=== PATIENT | male | born 1950 | race Caucasian/White ===

== ENCOUNTER → 2018-01-15 14:33 | Outpatient (CLI) | payer OTHER, SELFPAY | PROVIDERS: Family Provider Family Medicine; PCP Family Medicine; Visit Provider Internal Medicine Hematology & Oncology | DX: C83.31 Diffuse large B-cell lymphoma, lymph nodes of head, face, and neck (principal) ==

== ENCOUNTER 2018-03-07 08:55 | Day surgery (SDC) | payer OTHER, SELFPAY ==
[2018-02-21 14:05] VITALS: BMI 27.7
[2018-03-07] VITALS (9 sets, daily range): BP systolic 91–149; BP diastolic 47–81; PULSE 62–78; RESP 11–16; TEMP 36–37.2; O2SAT 96–99; BMI 27.7
[2018-03-07] MEDS: LACTATED RINGERS 1,000 ML 100 ML IV (09:26)
[2018-03-07] MEDS: CEFAZOLIN 2 GM/100 ML FROZ.PIGGY IV (10:20)
--- NOTE | 2018-03-07 10:21 | PM.HP.1 ---
History of Present Illness Date Patient Seen: 03/07/18 Time Patient Seen: 10:22 Chief complaint: [id number] PORT-A-CATH REMOVAL Narrative: Pleasant 67-year-old gentleman with stage IA or IIA lymphoma. He has completed chemotherapy and no longer needs his power port. He is here today to have it removed. He denies any constitutional symptoms. He reports he feels pretty well. He is anxious to be rid of the device. Patient History Medical History Femur fracture (Acute) Fractured elbow (Acute ~1979) Impaired vision (Acute) Malaise and fatigue (Acute) Port-A-Cath in place (Acute) Surgical History History of bone marrow biopsy (Acute) Family & Social History Family History: Reviewed 03/07/18 by Juana Mock MD Social History: household members spouse Tobacco & Substance use: Tobacco type cigarettes alcohol intake current Meds Home Medications Medication Instructions Recorded Confirmed Type [compression stocking] SEE INSTRUCTIONS #1 05/30/17 Rx omeprazole 20 mg PO QDAY #30 cap 06/09/17 03/07/18 Rx acetaminophen [Tylenol Extra 1,000 mg PO Q6HP PRN #0 10/25/17 03/07/18 History Strength] calcium carbonate [Tums E-X] 750 mg PO BID #120 tab 11/01/17 03/07/18 Rx trazodone 100 mg tablet 100 mg PO HS #30 tab 11/30/17 03/07/18 Rx atorvastatin [Lipitor] 20 mg PO HS #30 tab 01/29/18 03/07/18 Rx Allergies Allergy/AdvReac Type Severity Reaction Status Date / Time bacitracin Allergy Unknown Verified 03/07/18 09:07 [From TRIPLE ANTIBIOTIC] Iodine and Iodide Containing Allergy Unknown Verified 03/07/18 09:07 Produc [IODINE AND IODIDE CONTAINING PRODUC] neomycin Allergy Unknown Verified 03/07/18 09:07 [From TRIPLE ANTIBIOTIC] polymyxin B Allergy Unknown Verified 03/07/18 09:07 [From TRIPLE ANTIBIOTIC] Review of Systems Review of Systems All systems reviewed & are unremarkable except as noted in HPI and below Exam Vital Signs (past 8 hours): - 03/07/18 09:15 Temperature 96.8 F L Pulse Rate 78 Respiratory Rate 16 Blood Pressure 149/76 H Oxygen Delivery Method Room Air Narrative Exam Narrative: Very pleasant, well-nourished well-developed gentleman in no distress HEENT: Normocephalic and atraumatic, pupils equal round reactive to light accommodation with anicteric sclera Lungs: Clear to auscultation bilaterally Heart: Regular rate and rhythm without murmur rub or gallop Chest: Power port in good position in the right subclavian location. No erythema overlying the port. Abdomen: Soft and nontender with active bowel sounds Extremities: Warm and well-perfused without gross evidence of infection or ischemia Assessment & Plan Plan: Assessment/Plan Narrative: Pleasant gentleman having completed chemotherapy and no longer in need of his power port. We discussed the risks and benefits of power port removal and he has expressed a desire to complete the procedure today.
--- NOTE | 2018-03-07 10:40 | SUR.OPER ---
Supine on padded OR bed, head on pillow, arms secured on padded arm boards at <90 degrees abduction, legs uncrossed, safety belt at thigh, tape over blanket over lower legs.
--- NOTE | 2018-03-07 10:48 | P.OP_ITS ---
Operative Date/Time/Diagnoses Date of procedure: 03/07/18 Time of procedure: 10:47 Post-op diagnosis: same Procedure & Clinicians Procedure: Right subclavian PowerPort removal Same procedure as scheduled: Yes Indications: Chemotherapy for lymphoma completed Surgeon: Juana Mock Anesthesia Type: General (Kuldip) Operative Notes Findings: Port removed in a single piece. Appears to be in good repair Closure Type: primary Specimen(s): none sent Estimated Blood Loss (mL): 5 Procedure in detail: After obtaining informed consent, the patient was brought to the operating room and placed in the supine position on the operating table. Following successful induction of IV sedation with monitored anesthesia care, the chest was prepped and draped in the standard surgical fashion. A timeout was held per SCOAP protocol. Following infiltration with local anesthetic to create a field block, the existing healed incision was repeated. This was carried down through the skin and subcutaneous tissue to reveal the tubing of the implanted central venous device. The tubing was carefully dissected free from surrounding structures and delivered into the field. Pressure was held at the deltopectoral groove to prevent air embolus and backbleeding. After 5 minutes time, we continued with dissection of the remaining portion of the port. The reservoir itself remained in the pocket and has been incorporated into the tissue. This was carefully dissected free with judicious use of a scalpel. It was delivered into the field as a single piece with tubing attached. The incision was checked for hemostasis and irrigated with warm saline solution. Once we were satisfied that all was clean and dry, it was closed in 2 layers with Vicryl Monocryl sutures. Dermabond was applied to the skin incision. All sponge, needle, and instrument counts were correct at the conclusion of the case. The patient was allowed to awaken from sedation without difficulty and taken to the post anesthesia care unit in good condition. Complications: none Condition: stable Disposition: PACU Plan for aftercare: 1. Discharge to home 2. Follow up with primary care physician and [facility] as needed.
[2018-03-07] MEDS: LIDOCAINE 1% W/EPI INJ 10 ML INJ (10:56)
[2018-03-07] MEDS: BUPIVACAINE 0.5% (PF) VIAL 30 ML INJ (10:57)
== END 2018-03-07 11:45 | disposition home or self-care (01) ==
PROVIDERS: Family Provider Family Medicine; PCP Family Medicine; Visit Provider Surgery
PROC: (CPT 36590; principal; 2018-03-07 09:45)
DX: Z45.2 Encounter for adjustment and management of vascular access device (principal); Z85.72 Personal history of non-Hodgkin lymphomas
CPT/HCPCS: 36590; J0690; J2250; J2405; J2704; J3010

== ENCOUNTER 2018-03-10 17:40 | Emergency (ER) | payer OTHER, SELFPAY ==
[2018-03-10 17:51] VITALS: BP 139/76; PULSE 76; RESP 20; TEMP 36.6; O2SAT 97; BMI 27.2
--- NOTE | 2018-03-10 18:01 | PC.NURSE ---
States that he was exposed to a large amt of dust while assisting with project. States gets sinus infections when this happens. States recent cancer treatment and port has been removed.
--- NOTE | 2018-03-10 18:30 | ED_ITS ---
HPI - URI/Sore Throat <Richelle Singh PA-C - Last Filed: 03/10/18 21:56> General Chief Complaint: Upper Respiratory Symptoms Stated Complaint: CONGESTION/COUGHING UP FLEM Time Seen by Provider: 03/10/18 18:14 Source: patient Mode of arrival: ambulatory Limitations: no limitations History of Present Illness HPI Narrative: This 67-year-old gentleman comes in today due to upper respiratory symptoms that started 4 nights ago after he inhaled dust the night before. He states this is typically the trigger for him. He came into the hospital to have his port removed on Monday and was noticing some sinus drainage and congestion. By , he had congestive congestion and bringing up discolored sputum. He states that over the counter decongestant is helping. He has mild sore throat, denies earache, sinus pain, fever, chills, or sweats. He does not have neck pain or swollen glands. He denies dyspnea, wheeze, or chest pain. He states that typically, this settles in his chest as it has now, has had many times and treated with 5 day antibiotic and resolves well. Related Data Home Medications Medication Instructions Recorded Confirmed acetaminophen [Tylenol Extra 1,000 mg PO Q6HP PRN #0 10/25/17 03/07/18 Strength] Previous Rx's Medication Instructions Recorded [compression stocking] SEE INSTRUCTIONS #1 05/30/17 omeprazole 20 mg PO QDAY #30 cap 06/09/17 calcium carbonate [Tums E-X] 750 mg PO BID #120 tab 11/01/17 trazodone 100 mg tablet 100 mg PO HS #30 tab 11/30/17 atorvastatin [Lipitor] 20 mg PO HS #30 tab 01/29/18 oxycodone-acetaminophen [Percocet] 1 tab PO Q4-6H PRN #10 tab MDD 4 03/07/18 azithromycin [Zithromax Z-Aftab] See Label Instructions .ROUTE 03/10/18 .COMPLEX #6 tab Allergies Allergy/AdvReac Type Severity Reaction Status Date / Time bacitracin Allergy Unknown Verified 03/07/18 09:07 [From TRIPLE ANTIBIOTIC] Iodine and Iodide Containing Allergy Unknown Verified 03/07/18 09:07 Produc [IODINE AND IODIDE CONTAINING PRODUC] neomycin Allergy Unknown Verified 03/07/18 09:07 [From TRIPLE ANTIBIOTIC] polymyxin B Allergy Unknown Verified 03/07/18 09:07 [From TRIPLE ANTIBIOTIC] Review of Systems <Richelle Singh PA-C - Last Filed: 03/10/18 21:56> Review of Systems All systems reviewed & are unremarkable except as noted in HPI and below Exam <Richelle Singh PA-C - Last Filed: 03/10/18 21:56> Narrative Exam Narrative: GENERAL APPEARANCE: Patient sitting comfortably, in no distress. HEAD: No sinus TTP. EYES: PERRL, EOMI. EARS: Normal auditory canals, TMS intact with normal light reflexes. ORAL CAVITY: Normal oropharynx. THROAT: No exudate, some PND noted NECK/THYROID: Neck supple, full range of motion, no cervical lymphadenopathy. LUNGS: Breath sounds are somewhat coarse with no wheeze, no rhonchi, some coarse crackles that mostly clear with cough, generalized, no cough on exam HEART: RRR without murmur, nl S1, S2, no S3 or S4. Initial Vital Signs Initial Vital Signs: Vital Signs Temperature 97.8 F 03/10/18 17:51 Pulse Rate 76 03/10/18 17:51 Respiratory Rate 20 03/10/18 17:51 Blood Pressure 139/76 H 03/10/18 17:51 Pulse Oximetry 97 03/10/18 17:51 GENERAL APPEARANCE: Patient sitting comfortably, in no distress. HEAD: No sinus TTP. EYES: PERRL, EOMI. EARS: Normal auditory canals, TMS intact with normal light reflexes. ORAL CAVITY: Normal oropharynx. THROAT: No exudate, some PND noted NECK/THYROID: Neck supple, full range of motion, no cervical lymphadenopathy. LUNGS: Breath sounds are somewhat coarse with no wheeze, no rhonchi, some coarse crackles that mostly clear with cough, generalized, no cough on exam HEART: RRR without murmur, nl S1, S2, no S3 or S4. Const General: cooperative and well developed Nutritional Appearance: well nourished Orientation: alert, awake, oriented x3 and not confused [facility] Head: normocephalic and atraumatic Ears: external ears normal and TM's normal bilaterally Nose: external nose normal and No nasal discharge Face and sinus: sinuses nontender, face symmetric, no sinus tenderness and No dry mucous membranes Mouth: oral mucosae normal and moist mucous membranes Teeth and gingiva: dentition normal Throat: tonsils normal and uvula midline Eyes General: appearance normal, both eyes and all related structures Eyelids: eyelids normal Conjunctivae: conjunctivae normal Sclera: sclerae normal Pupils: PERRL EOM: EOM intact bilaterally Neck Neck: normal visual inspection, trachea midline, No lymphadenopathy, No midline deformity and No JVD Lymphatic: No lymphedema Chest Chest: normal inspection of the chest Resp Effort & Inspection: normal respiratory effort, able to speak in complete sentences, no respiratory distress and no use of accessory muscles Auscultation: clear to auscultation bilaterally, no rales, no rhonchi and no wheezes Cardio Rate: regular rate Rhythm: regular rhythm Heart Sounds: no click, no gallops, no murmurs and no rubs Pulses: normal peripheral pulses GI Inspection: non-distended Palpation: soft, no hepatosplenomegaly, No guarding, No pulsatile mass and No tender Auscultation: normal bowel sounds Back/Spine/Pelvis Back: No CVA tenderness Cervical Spine: cervical ROM normal and No pain with cervical ROM Thoracic/Lumbar Spine: thoracic and lumbar spine normal to inspection Skin General: no rashes or lesions noted, No jaundice and No petechiae Neuro General: alert, oriented x3, gait normal and no focal motor deficits Speech: speech normal Extrem General: full ROM, no clubbing, cyanosis or edema, no pedal edema and no calf tenderness Psych Appearance: well kempt Mental Status: mental status grossly normal Attitude: cooperative Thought Content: normal and suicidality Judgment: judgment good <Mark Anthony Nelson DO - Last Filed: 03/10/18 22:09> Initial Vital Signs Initial Vital Signs: Vital Signs Temperature 97.8 F 03/10/18 17:51 Pulse Rate 76 03/10/18 17:51 Respiratory Rate 20 03/10/18 17:51 Blood Pressure 139/76 H 03/10/18 17:51 Pulse Oximetry 97 03/10/18 17:51 Course <Richelle Singh PA-C - Last Filed: 03/10/18 21:56> Orders Ordered: Discontinued Medications Azithromycin (Zithromax) 500 mg PO NOW ONE Stop: 03/10/18 19:23 Last Admin: 03/10/18 19:25 Dose: 500 mg Vital Signs - 8 hr 03/10/18 17:51 Temperature 97.8 F Pulse Rate 76 Respiratory Rate 20 Blood Pressure 139/76 H Pulse Oximetry 97 <Mark Anthony NelsonDO - Last Filed: 03/10/18 22:09> Orders Ordered: Discontinued Medications Azithromycin (Zithromax) 500 mg PO NOW ONE Stop: 03/10/18 19:23 Last Admin: 03/10/18 19:25 Dose: 500 mg Vital Signs - 8 hr 03/10/18 17:51 Temperature 97.8 F Pulse Rate 76 Respiratory Rate 20 Blood Pressure 139/76 H Pulse Oximetry 97 Discharge Plan Departure Patient Disposition: Home Clinical Impression: Bronchitis Discharge Date/Time: 03/10/18 18:46 Interventions: ED Discharge Assessment Last Done: 03/10/18 18:46 Instructions: DI for Acute Bronchitis Activity Restrictions/Additional Instructions: You should return as we talked about if you have any acutely worsening symptoms , or new symptoms such as trouble breathing, chest pain or fever. Otherwise, you can take the antibiotic that you have had previously since it has worked well for you in the past. There is a chance also that this is a virus and may get better on its own, but you should follow up with your PCP if you are not feeling better within a week. You can continue your [id number] cough medicine/decongestant that you have been taking as needed Prescriptions: New azithromycin [Zithromax Z-Aftab] 250 mg tablet See Label Instructions .ROUTE .COMPLEX Qty: 6 RF: 0 No Action [compression stocking] SEE INSTRUCTIONS Qty: 1 RF: 0 omeprazole 20 MG capsule,delayed release(DR/EC) 20 mg PO QDAY Qty: 30 RF: 5 acetaminophen [Tylenol Extra Strength] 500 MG tablet 1,000 mg PO Q6HP PRN (Reason: Pain) Qty: 0 RF: 0 calcium carbonate [Tums E-X] 750 MG tablet,chewable 750 mg PO BID Qty: 120 RF: 0 trazodone 100 mg tablet 100 mg PO HS Qty: 30 RF: 5 atorvastatin [Lipitor] 20 mg tablet 20 mg PO HS Qty: 30 RF: 5 oxycodone-acetaminophen [Percocet] 5-325 mg tablet 1 tab PO Q4-6H MDD 4 PRN (Reason: pain) Qty: 10 RF: 0 Referrals: Oscar Morrissey MD [Primary Care Provider] - <Mark Anthony Nelson DO - Last Filed: 03/10/18 22:09> Cosign ED Attending Duncanature Attestation: I was available for consultation during this patient's emergency department encounter
[2018-03-10] MEDS: AZITHROMYCIN 250 MG TABLET 500 MG PO (19:25)
--- NOTE | 2018-03-10 19:27 | PC.NURSE ---
Pt returned to ED after not being able to fill prescription due to [facility] pharmacy being closed. Pam Singh notified, pt given first dose azithromycin 500mg to take at home.
== END 2018-03-10 18:46 | disposition home or self-care (01) ==
PROVIDERS: Emergency Provider Internal Medicine; Family Provider Family Medicine; PCP Family Medicine
DX: J40 Bronchitis, not specified as acute or chronic (principal)
CPT/HCPCS: 99282; 99283

== ENCOUNTER → 2018-03-27 17:07 | Outpatient (CLI) | payer OTHER, SELFPAY ==
[2018-03-27 17:22] LABS: Add Manual Diff / Slide Review NO; Basophils Percent Auto 0.8 % (0-2); Eosinophils Percent Auto 1.8 % (2-4); Hematocrit 40.7 % (41-53); Hemoglobin 13.8 g/dL (13.5-17.5); Lymphocytes Percent Auto 16.2 % (25-40); Mean Corpuscular HGB Conc 33.9 % (30-36); Mean Corpuscular Hemoglobin 30.5 PG (26-34); Monocytes Percent Auto 11.6 % (3-14); Neutrophils Absolute Auto 4100 /uL (3000-5900); Neutrophils Percent Auto 69.6 % (50-75); Platelet Count 189 X10^3/uL (150-400); Red Blood Cell Count 4.52 X10^6/uL (4.5-5.9); Red Cell Distribution Width 13.4 % (11.6-14.8); White Blood Cell Count 5.9 X10^3/uL (4.5-11.0)
[2018-03-27 17:35] LABS: BUN Creatinine Ratio 21.1 (6-22); Blood Urea Nitrogen 19 mg/dL (9-20); Calcium 8.6 mg/dL (8.4-10.2); Carbon Dioxide 32 mmol/L (22-32); Chloride 101 mmol/L (98-107); Estimated Glomerular Filt Rate > 60.0 mL/min (>60); Glucose 95 mg/dL (80-110); HEMOLYSIS < 15 (0-50); Potassium 4.2 mmol/L (3.4-5.1); Sodium 141 mmol/L (137-145)
== END ==
PROVIDERS: Family Provider Family Medicine; PCP Family Medicine; Visit Provider Family Medicine
DX: D70.9 Neutropenia, unspecified (principal); Z79.899 Other long term (current) drug therapy
CPT/HCPCS: 36415; 80048; 85025

== ENCOUNTER → 2018-04-17 14:51 | Outpatient (CLI) | payer OTHER, SELFPAY ==
[2018-04-17 15:20] LABS: Add Manual Diff / Slide Review NO; Basophils Percent Auto 1.1 % (0-2); Eosinophils Percent Auto 0.8 % (2-4); Hematocrit 42.9 % (41-53); Hemoglobin 14.3 g/dL (13.5-17.5); Lymphocytes Percent Auto 10.2 % (25-40); Mean Corpuscular HGB Conc 33.4 % (30-36); Mean Corpuscular Volume 89.9 fL (80-100); Monocytes Percent Auto 11.1 % (3-14); Neutrophils Absolute Auto 5800 /uL (3000-5900); Neutrophils Percent Auto 76.8 % (50-75); Platelet Count 185 X10^3/uL (150-400); Red Blood Cell Count 4.77 X10^6/uL (4.5-5.9); Red Cell Distribution Width 14.1 % (11.6-14.8); White Blood Cell Count 7.5 X10^3/uL (4.5-11.0)
[2018-04-17 15:24] LABS: Alanine Aminotransferase 33 IU/L (21-72); Albumin 4.5 g/dL (3.5-5.0); Albumin Globulin Ratio 1.7 (1.0-2.8); Alkaline Phosphatase 78 U/L (38-126); Aspartate Aminotransferase 28 IU/L (17-59); Bilirubin Total 0.5 mg/dL (0.2-1.3); Blood Urea Nitrogen 20 mg/dL (9-20); Calcium 8.7 mg/dL (8.4-10.2); Carbon Dioxide 29 mmol/L (22-32); Chloride 101 mmol/L (98-107); Estimated Glomerular Filt Rate > 60.0 mL/min (>60); Globulin 2.7 g/dL (1.7-4.1); Glucose 106 mg/dL (80-110); HEMOLYSIS 21 (0-50); Lactate Dehydrogenase 492 U/L (313-618); Potassium 3.8 mmol/L (3.4-5.1); Sodium 141 mmol/L (137-145); Total Protein 7.2 g/dL (6.3-8.2)
== END ==
PROVIDERS: Internal Medicine Hematology & Oncology; Family Provider Family Medicine; PCP Family Medicine; Visit Provider Nurse Practitioner Gerontology
DX: C85.90 Non-Hodgkin lymphoma, unspecified, unspecified site (principal)
CPT/HCPCS: 36415; 80053; 83615; 85025

== ENCOUNTER → 2018-11-21 13:38 | Outpatient (CLI) | payer OTHER, SELFPAY ==
[2018-11-21 14:18] LABS: Add Manual Diff / Slide Review NO; Basophils Absolute Auto 0 /uL (0-100); Basophils Percent Auto 0.7 % (0-2); Eosinophils Absolute Auto 100 /uL (0-450); Eosinophils Percent Auto 1.5 % (2-4); Hematocrit 43.8 % (41-53); Hemoglobin 14.8 g/dL (13.5-17.5); Lymphocytes Absolute Auto 900 /uL (1100-4500); Lymphocytes Percent Auto 14.3 % (25-40); Mean Corpuscular HGB Conc 33.7 % (30-36); Mean Corpuscular Hemoglobin 30.7 PG (26-34); Monocytes Absolute Auto 600 /uL (0-900); Monocytes Percent Auto 8.9 % (3-14); Neutrophils Absolute Auto 4700 /uL (1500-7000); Neutrophils Percent Auto 74.6 % (50-75); Platelet Count 222 X10^3/uL (150-400); Red Blood Cell Count 4.81 X10^6/uL (4.5-5.9); Red Cell Distribution Width 13.9 % (11.6-14.8); White Blood Cell Count 6.3 X10^3/uL (4.5-11.0)
[2018-11-21 14:27] LABS: Alanine Aminotransferase 45 IU/L (21-72); Albumin 4.7 g/dL (3.5-5.0); Albumin Globulin Ratio 1.8 (1.0-2.8); Alkaline Phosphatase 78 U/L (38-126); Aspartate Aminotransferase 33 IU/L (17-59); Bilirubin Total 0.5 mg/dL (0.2-1.3); Blood Urea Nitrogen 16 mg/dL (9-20); Calcium 9.2 mg/dL (8.4-10.2); Carbon Dioxide 30 mmol/L (22-32); Chloride 97 mmol/L (98-107); Cholesterol 159 mg/dL (140-199); Estimated Glomerular Filt Rate > 60.0 mL/min (>60); Globulin 2.6 g/dL (1.7-4.1); Glucose 117 mg/dL (80-110); HDL Cholesterol 62 mg/dL (40-60); HEMOLYSIS < 15 (0-50); LDL Cholesterol Calculated 79 mg/dL (<100); Lactate Dehydrogenase 531 U/L (313-618); Potassium 4.2 mmol/L (3.4-5.1); Sodium 138 mmol/L (137-145); Total Protein 7.3 g/dL (6.3-8.2); Triglycerides 92 mg/dL (35-150)
[2018-11-21 17:45] LABS: Vitamin D 25 Hydroxy (D3) 30.1 ng/mL (30.0-100.0)
[2018-11-23 12:04] LABS: Beta-2-Microglobulin 1.72 mg/L (< 2.52)
== END ==
PROVIDERS: Family Provider Student in an Organized Health Care Education/Training Program; PCP Student in an Organized Health Care Education/Training Program; Visit Provider Nurse Practitioner Gerontology
DX: C83.30 Diffuse large B-cell lymphoma, unspecified site (principal)
CPT/HCPCS: 36415; 80053; 80061; 82232; 82306; 83615; 85025

== ENCOUNTER → 2018-12-06 09:54 | Outpatient (CLI) | payer OTHER, SELFPAY ==
[2018-12-06 10:29] LABS: BUN Creatinine Ratio 18.9 (6-22); Blood Urea Nitrogen 17 mg/dL (9-20); Estimated Glomerular Filt Rate > 60.0 mL/min (>60)
[2018-12-06 11:06] LABS: Cholesterol 167 mg/dL (140-199); HDL Cholesterol 61 mg/dL (40-60); LDL Cholesterol Calculated 90 mg/dL (<100); Triglycerides 78 mg/dL (35-150)
[2018-12-06 11:24] LABS: Vitamin D 25 Hydroxy (D3) 24.3 ng/mL (30.0-100.0)
--- NOTE | 2018-12-06 12:04 | DI.CT.S_ITS ---
PROCEDURE: CT SOFT TISSUE NECK W CON INDICATIONS: Surveillance Lymphoma TECHNIQUE: After the administration of intravenous contrast, 3.0 mm axial sections acquired from the sella to the aortic arch. Additional oblique axial 3.0 mm sections acquired through the pharynx. 3 mm thick coronal and sagittal reformats were generated. For radiation dose reduction, the following was used: automated exposure control. COMPARISON: [facility], CT, SOFT TISSUE NECK W CONTRAST, 11/16/2017, 12:25. FINDINGS: Image quality: Excellent. Lymph nodes: Previously described 4.3 x 2.4 x 1.6 cm right supraclavicular kyle mass is no longer present on the current study. No enlarged lymph nodes are seen in bilateral neck soft tissues on the current study. Vessels: Visualized vasculature appears patent. Neck spaces: The oropharynx, nasopharynx, and pharynx demonstrate no mucosal lesions. The vocal cords, false vocal cords, pyriform sinuses, epiglottis, vallecula, and tongue base all appear normal. Extramucosal spaces appear unremarkable. Glands: The parotid and submandibular glands appear normal. Thyroid gland is within normal limits. Miscellaneous: Visualized brain and orbits appear normal. Lung apices appear clear. Superficial soft tissues appear normal. Bones: No suspicious bony lesions. Visualized sinuses and mastoids appear unremarkable. Degenerative disc disease throughout cervical spine and upper thoracic spine is seen. IMPRESSION: 1. Interval resolution of previously noted right supraclavicular local mass. No neck soft tissue lymphadenopathy is noted on the current study based on size criteria. 2. Airway is patent. Dictated by: Cisco Guerra M.D. on 12/06/2018 at 14:12 Approved by: Cisco Guerra M.D. on 12/06/2018 at 14:21
--- NOTE | 2018-12-06 12:04 | DI.CT.S_ITS ---
PROCEDURE: CT CHEST ABD PEL W CON INDICATIONS: Surveillance Lymphoma TECHNIQUE: After the administration of oral and intravenous contrast, 5 mm thick sections acquired from the lung apices to the symphysis. 5 mm coronal and sagittal reformats were performed, with additional 7 mm coronal MIP reformats through the lungs. For radiation dose reduction, the following was used: automated exposure control, adjustment of mA and/or kV according to patient size. COMPARISON: [facility], [place], LA PET CT FUSION SKULL 2 THIGH, 05/30/2018, 14:50. [facility], CT, CHEST/ABD/PEL WITH CONTRAST, 11/16/2017, 12:25. FINDINGS: Image quality: Excellent. CHEST: Lungs and pleura: No acute airspace opacities. Linear scarring/atelectasis in the anterior medial aspect of right lung base is seen. No pleural effusions or pneumothorax. Central and peripheral airways appear patent and normal in caliber. Mediastinum: Heart size is normal. No pericardial effusion. No mediastinal or hilar adenopathy by size criteria. Thoracic aorta and central pulmonary arteries are normal in size. Esophagus is normal in caliber. No hiatal hernia. Chest wall: No axillary or supraclavicular adenopathy by size criteria. Thyroid gland is within normal limits. ABDOMEN: Solid organs: Liver is normal in size and enhancement. There is mild hepatic steatosis. Gallbladder is unremarkable. Biliary system is non dilated. Pancreas enhances normally. Spleen is normal in size and enhancement. No adrenal nodules. Kidneys demonstrate normal size and enhancement, without hydronephrosis. 3 mm nonobstructing stone in midpole of right kidney is again seen, unchanged from prior studies. Tiny 2-3 mm nonobstructing stone in upper pole of left kidney is also noted and unchanged mild sigmoid diverticulosis is seen, no evidence of acute diverticulitis. Small hiatal hernia is noted. Peritoneum and bowel: Bowel loops demonstrate normal wall thickness and caliber. No free fluid or air. Nodes and vessels: No retroperitoneal or mesenteric adenopathy by size criteria. Aorta and inferior vena cava are normal in size. Atherosclerotic calcifications in abdominal aorta are seen. Miscellaneous: No ventral hernias. PELVIS: Genitourinary: Bladder wall thickness is normal. Miscellaneous: No inguinal hernias or adenopathy. Bones: No suspicious bony lesions. No vertebral body compression fractures. Large subcutaneous lipoma dorsal to right scapula is again seen and unchanged. IMPRESSION: 1. No significant changes from previous study. No abnormally enlarged lymph nodes are seen in chest, abdomen or pelvis by size criteria. 2. No acute inflammatory process within the abdomen or pelvis. No bowel obstruction. No free fluid or free air. 3. Tiny bilateral nonobstructing renal calculi. No hydronephrosis. 4. Stable large subcutaneous lipoma posterior to right scapula. Dictated by: Cisco Guerra M.D. on 12/06/2018 at 13:57 Approved by: Cisco Guerra M.D. on 12/06/2018 at 14:12
== END ==
PROVIDERS: Family Provider Student in an Organized Health Care Education/Training Program; PCP Student in an Organized Health Care Education/Training Program; Visit Provider Internal Medicine Hematology & Oncology
DX: C83.30 Diffuse large B-cell lymphoma, unspecified site (principal); D17.79 Benign lipomatous neoplasm of other sites; E78.00 Pure hypercholesterolemia, unspecified; E55.9 Vitamin D deficiency, unspecified
CPT/HCPCS: 36415; 70491; 71260; 74177; 80061; 82306; 82565; 84520; Q9967

== ENCOUNTER 2019-02-04 06:57 | Emergency (ER) | payer OTHER, SELFPAY ==
--- NOTE | 2019-02-04 07:05 | ED.ABDPAIN ---
HPI - Abdominal Pain General Chief Complaint: Urogenital-Male Stated Complaint: ABDOMINAL PAIN Time Seen by Provider: 02/04/19 07:04 Source: patient Mode of arrival: ambulatory Limitations: no limitations History of Present Illness HPI narrative: 68-year-old male here for evaluation of left-sided abdominal pain. Patient states that it started approximately 2 hours prior to arrival here in the emergency department. Fairly sudden onset. He has had a history of kidney stones in the past but he stated that that was many years ago and he does not remember this feels like prior kidney stone. He states that he tried to urinate when he arrived in the emergency department was unable to. Pain is not worse with palpation. No vomiting. Has not tried anything for the symptoms prior to arrival Related Data Home Medications Medication Instructions Recorded Confirmed acetaminophen [Tylenol Extra 1,000 mg PO Q6HP PRN #0 10/25/17 11/01/18 Strength] Previous Rx's Medication Instructions Recorded [compression stocking] SEE INSTRUCTIONS #1 05/30/17 calcium carbonate [Tums E-X] 750 mg PO BID #120 tab 11/01/17 atorvastatin 20 mg tablet 20 mg PO HS #90 tab 11/01/18 trazodone 100 mg tablet 100 mg PO HS #90 tab 11/01/18 omeprazole 20 mg tablet,delayed 20 mg PO DAILY #90 tab 12/05/18 release hydrocodone-acetaminophen [[place]] 1 tab PO Q4-6H PRN #14 tab 02/04/19 ondansetron HCl [Zofran] 4 mg PO Q6-8H PRN #14 tab 02/04/19 Allergies Allergy/AdvReac Type Severity Reaction Status Date / Time bacitracin Allergy Unknown Verified 11/01/18 13:39 [From TRIPLE ANTIBIOTIC] Iodine and Iodide Containing Allergy Unknown Verified 11/01/18 13:39 Produc [IODINE AND IODIDE CONTAINING PRODUC] neomycin Allergy Unknown Verified 11/01/18 13:39 [From TRIPLE ANTIBIOTIC] polymyxin B Allergy Unknown Verified 11/01/18 13:39 [From TRIPLE ANTIBIOTIC] Review of Systems Constitutional Denies fever(s) and Denies headache(s) ENT Ears, Nose, Mouth, and Throat: Denies headache(s) Cardiovascular Denies chest pain and Denies dyspnea Respiratory Denies dyspnea Gastrointestinal Gastrointestinal: Reports abdominal pain, Denies change in stool character, Denies nausea and Denies vomiting Genitourinary Comments: Unable to urinate upon arrival here to the ER Musculoskeletal Comments: Left flank pain Integumentary/Breasts Denies rash Neurologic Denies headache(s) Hematologic/Lymphatic Denies easy bleeding and Denies easy bruising FORMERLY [facility], 1928–1983 Medical History NHL (non-Hodgkin's lymphoma) (Chronic) Gastroesophageal reflux disease without esophagitis (Chronic 05/31/16) Pure hypercholesterolemia (Chronic 05/31/16) Primary insomnia (06/23/16) Chronic venous insufficiency (05/29/17) Femur fracture (Acute) Fractured elbow (Acute ~1979) Impaired vision (Acute) Malaise and fatigue (Acute) Port-A-Cath in place (Acute) ADHD (attention deficit hyperactivity disorder) (Chronic 2009) Allergic rhinitis (Chronic) GERD (gastroesophageal reflux disease) (Chronic) Hearing loss (Chronic) Hyperlipemia (Chronic) Hypertension (Chronic) Insomnia (Chronic) Lymphoma (Chronic) Rosacea (Chronic 2003) Sleep apnea (Chronic 2001) Chickenpox (Resolved 1955) Fractures (Resolved) Hemorrhoids (Resolved 1994) Hx of staphylococcal infection (Resolved 2010) Kidney stones (Resolved 1997) Measles (Resolved 1957) Mumps (Resolved 1956) Surgical History (Updated 12/18/18 @ 14:10 by James Vargas MD) Hx of bone graft (Resolved 2009) History of bone marrow biopsy (Resolved) Hx of surgical procedure (Resolved) Family History Father Cancer Mother No problems noted. Grandfather Cancer Sister Cancer Social History marital status: household members: spouse Smoking Status: Former smoker alcohol intake: current Social History marital status: household members: spouse Smoking Status: Former smoker alcohol intake: current Exam Initial Vital Signs Initial Vital Signs: Vital Signs Temperature 97.5 F L 02/04/19 07:06 Pulse Rate 65 02/04/19 07:06 Respiratory Rate 18 02/04/19 07:06 Blood Pressure 190/68 H 02/04/19 07:06 Pulse Oximetry 97 02/04/19 07:06 Const General: cooperative, No comfortable (Uncomfortable), well developed and well groomed Orientation: alert, awake and oriented x3 Resp Effort & Inspection: normal respiratory effort Auscultation: clear to auscultation bilaterally Cardio Rate: regular rate Rhythm: regular rhythm GI Inspection: non-distended Palpation: soft, No firm and No tender Back/Spine/Pelvis Back: No CVA tenderness Skin Lesions: no lesions Rashes: no rashes Neuro General: alert and awake Cognition: normal cognition Speech: speech normal Extrem General: normal to inspection and capillary refill normal Psych Appearance: grossly normal and well kempt Course Orders Ordered: ED Orders 02/04/19 09:46 CT kidney ureter bladder (KUB) Stat Discontinued Medications Acetaminophen (Tylenol) 650 mg PO NOW ONE Stop: 02/04/19 07:07 Last Admin: 02/04/19 07:33 Dose: 650 mg Hydrocodone Bitart/Acetaminophen ([place] 5/325) 1 tab PO NOW ONE Stop: 02/04/19 10:35 Last Admin: 02/04/19 11:26 Dose: Not Given Hydromorphone HCl (Dilaudid) 1 mg IV NOW ONE Stop: 02/04/19 07:25 Last Admin: 02/04/19 07:32 Dose: 1 mg Hydromorphone HCl (Dilaudid) 1 mg IV NOW ONE Stop: 02/04/19 11:25 Last Admin: 02/04/19 11:27 Dose: 1 mg Lidocaine HCl 7 ml/ Sodium (Chloride) 57 mls @ 342 mls/hr IV NOW ONE Stop: 02/04/19 07:11 Last Infusion: 02/04/19 08:56 Dose: 0 mls/hr Admin: 02/04/19 07:54 Dose: 342 mls/hr Sodium Chloride (Normal Saline 0.9%) 1,000 mls @ 1,000 mls/hr IV BOLUS ONE Stop: 02/04/19 08:22 Last Infusion: 02/04/19 08:56 Dose: 0 mls/hr Admin: 02/04/19 07:33 Dose: 1,000 mls/hr Ketorolac Tromethamine (Toradol) 30 mg IV NOW ONE Stop: 02/04/19 07:07 Last Admin: 02/04/19 07:33 Dose: 30 mg Ondansetron HCl (Zofran Odt) 4 mg SL NOW ONE Stop: 02/04/19 11:12 Last Admin: 02/04/19 11:26 Dose: Not Given Ondansetron HCl (Zofran) 4 mg IV NOW ONE Stop: 02/04/19 11:25 Last Admin: 02/04/19 11:26 Dose: 4 mg Vital Signs - 8 hr 02/04/19 09:15 02/04/19 10:00 02/04/19 11:15 Pulse Rate 57 L 60 107 H Respiratory Rate 11 L 12 22 Blood Pressure [Right Arm] 169/62 H 156/80 H 160/67 H Pulse Oximetry 98 02/04/19 11:30 Pulse Rate 68 Respiratory Rate 16 Blood Pressure [Right Arm] 142/63 H Pulse Oximetry MDM - Abdominal Pain Lab Data Attestation: I reviewed the patient's lab results. Result diagrams: 02/04/19 07:20 02/04/19 07:20 Lab Results 02/04/19 02/04/19 Range/Units 07:20 07:20 WBC 11.5 H (4.5-11.0) X10^3/uL RBC 4.64 (4.5-5.9) X10^6/uL Hgb 13.9 (13.5-17.5) g/dL Hct 42.4 (41-53) % MCV 91.4 (80-100) fL MCH 29.9 (26-34) PG MCHC 32.7 (30-36) % RDW 13.9 (11.6-14.8) % Plt Count 217 (150-400) X10^3/uL Neut % (Auto) 77.0 H (50-75) % Lymph % (Auto) 13.8 L (25-40) % [place] % (Auto) 7.1 (3-14) % Eos % (Auto) 1.6 L (2-4) % Baso % (Auto) 0.5 (0-2) % Neut # (Auto) 8900 H (2909-3868) /uL Lymph # (Auto) 1600 (4945-4345) /uL [place] # (Auto) 800 (0-900) /uL Eos # (Auto) 200 (0-450) /uL Baso # (Auto) 100 (0-100) /uL Sodium 141 (137-145) mmol/L Potassium 3.6 (3.4-5.1) mmol/L Chloride 103 (98-107) mmol/L Carbon Dioxide 29 (22-32) mmol/L BUN 18 (9-20) mg/dL Creatinine 1.10 (0.66-1.25) mg/dL Estimated GFR > 60.0 (>60) mL/min BUN/Creatinine Ratio 16.4 (6-22) Glucose 189 H (80-110) mg/dL Calcium 8.7 (8.4-10.2) mg/dL Imaging Data CT scan - abdomen: Radiologist's impression: Raza Frankel 68 M [address] [address] [address] Scan Report Signed Patient: Raza Frankel [facility]#: [id number] : 1950cct:[id number] Age/Sex: 68 / MDate of Service: 02/04/19 Loc: ED Accession Number: [id number] Procedure: CT kidney ureter bladder (KUB) Ordering Provider: Mark Anthony Nelson D.O. PROCEDURE: CT KIDNEY URETER BLADDER (KUB) INDICATIONS: Possible left-sided stone TECHNIQUE: Noncontrast 5 mm thick sections acquired from the diaphragms to the symphysis. 5 mm thick coronal and sagittal reformats were then performed. For radiation dose reduction, the following was used: automated exposure control, adjustment of mA and/or kV according to patient size. COMPARISON: [facility], CT, CT CHEST ABD PEL W CON, 12/06/2018, 12:46. FINDINGS: Image quality: Excellent. Lung bases: Lung bases are clear. Heart size is normal. Urinary system: Right kidney: Nonobstructing 3 mm mobile stone. No hydronephrosis. Right ureter: Unremarkable. Left kidney: Development of moderate hydronephrosis with perinephric stranding. 1 mm nonobstructing lower pole stone. Left ureter: Mildly dilated to the ureterovesical junction where there is obstruction by a 2 mm stone. Bladder: Normal wall thickness. No calculi. Other solid organs: Liver is normal in size. Gallbladder is unremarkable. Pancreas is normal in contours. Spleen is normal in size. No adrenal nodules. Peritoneum and bowel: Unenhanced bowel loops demonstrate normal wall thickness and caliber. No free fluid or air. Nodes and vessels: No retroperitoneal or mesenteric adenopathy by size criteria. Aorta and inferior vena cava are normal in caliber. Abdominal wall: No ventral hernias. Pelvis: No free pelvic fluid. Small bilateral inguinal hernias containing fat. Bones: No suspicious bony lesions. No vertebral body compression fractures. IMPRESSION: 1. A 2 mm stone at the left ureterovesical junction results in moderate left hydronephrosis. 2. Small bilateral nonobstructing renal stones. Dictated by: Gurdeep Ferrara M.D. on 02/04/2019 at 10:15 Approved by: Gurdeep Ferrara M.D. on 02/04/2019 at 10:19 [facility] Narrative Medical decision making narrative: CT scan was ordered secondary to the patient's inability to urinate. His creatinine is unremarkable. He does have a 2 mm distal left-sided stone which is most likely causing his symptoms. Symptoms were controlled with medications here in the emergency department. Will send home with symptom control. Patient was given return precautions and follow-up instructions. He expressed understanding and agreement with plan. Discharge Plan Departure Patient Disposition: Home Clinical Impression: Renal colic on left side Discharge Date/Time: 02/04/19 12:04 Interventions: ED Discharge Assessment Last Done: 02/04/19 12:04 Instructions: DI for Kidney Stones Activity Restrictions/Additional Instructions: Take the nausea medicine and the pain medication as directed. Contact your primary provider for a follow-up. Return to the emergency department for any new symptoms to include fevers, worsening pain, or any other concerning symptoms Prescriptions: New hydrocodone-acetaminophen [[place]] 5-325 mg tablet 1 tab PO Q4-6H PRN (Reason: pain) Qty: 14 RF: 0 ondansetron HCl [Zofran] 4 mg tablet 4 mg PO Q6-8H PRN (Reason: nausea and vomiting) Qty: 14 RF: 0 No Action [compression stocking] SEE INSTRUCTIONS Qty: 1 RF: 0 acetaminophen [Tylenol Extra Strength] 500 MG tablet 1,000 mg PO Q6HP PRN (Reason: Pain) Qty: 0 RF: 0 calcium carbonate [Tums E-X] 750 MG tablet,chewable 750 mg PO BID Qty: 120 RF: 0 omeprazole 20 mg tablet,delayed release (DR/EC) 20 mg PO DAILY Qty: 90 RF: 1 atorvastatin [Lipitor] 20 mg tablet 20 mg PO HS Qty: 90 RF: 3 trazodone 100 mg tablet 100 mg PO HS Qty: 90 RF: 3 Referrals: Josef Gomez MD [Primary Care Provider] -
[2019-02-04 07:06] VITALS: BP 190/68; PULSE 65; RESP 18; TEMP 36.4; O2SAT 97; BMI 32.2
[2019-02-04] MEDS: HYDROMORPHONE 1 MG INJ IV ×2 (07:32→11:27)
[2019-02-04] MEDS: SODIUM CHLORIDE 0.9% 1,000 ML 1000 ML IV (07:33)
[2019-02-04] MEDS: KETOROLAC 60 MG/2 ML VIAL 30 MG IV (07:33)
[2019-02-04] MEDS: ACETAMINOPHEN 325 MG TABLET 650 MG PO (07:33)
[2019-02-04 07:34] LABS: Add Manual Diff / Slide Review NO; Basophils Absolute Auto 100 /uL (0-100); Basophils Percent Auto 0.5 % (0-2); Eosinophils Absolute Auto 200 /uL (0-450); Eosinophils Percent Auto 1.6 % (2-4); Hematocrit 42.4 % (41-53); Hemoglobin 13.9 g/dL (13.5-17.5); Lymphocytes Absolute Auto 1600 /uL (1100-4500); Lymphocytes Percent Auto 13.8 % (25-40); Mean Corpuscular HGB Conc 32.7 % (30-36); Mean Corpuscular Hemoglobin 29.9 PG (26-34); Mean Corpuscular Volume 91.4 fL (80-100); Monocytes Absolute Auto 800 /uL (0-900); Monocytes Percent Auto 7.1 % (3-14); Neutrophils Absolute Auto 8900 /uL (1500-7000); Platelet Count 217 X10^3/uL (150-400); Red Blood Cell Count 4.64 X10^6/uL (4.5-5.9); Red Cell Distribution Width 13.9 % (11.6-14.8); White Blood Cell Count 11.5 X10^3/uL (4.5-11.0)
[2019-02-04 07:39] LABS: BUN Creatinine Ratio 16.4 (6-22); Blood Urea Nitrogen 18 mg/dL (9-20); Calcium 8.7 mg/dL (8.4-10.2); Carbon Dioxide 29 mmol/L (22-32); Chloride 103 mmol/L (98-107); Estimated Glomerular Filt Rate > 60.0 mL/min (>60); Glucose 189 mg/dL (80-110); HEMOLYSIS < 15 (0-50); Potassium 3.6 mmol/L (3.4-5.1); Sodium 141 mmol/L (137-145)
[2019-02-04] MEDS: LIDOCAINE 2% 7 ML in SODIUM CHLORIDE 0.9% 50 ML 342 ML IV (07:54)
[2019-02-04 09:15] VITALS: BP 169/62; PULSE 57; RESP 11
--- NOTE | 2019-02-04 09:46 | DI.CT.S_ITS ---
PROCEDURE: CT KIDNEY URETER BLADDER (KUB) INDICATIONS: Possible left-sided stone TECHNIQUE: Noncontrast 5 mm thick sections acquired from the diaphragms to the symphysis. 5 mm thick coronal and sagittal reformats were then performed. For radiation dose reduction, the following was used: automated exposure control, adjustment of mA and/or kV according to patient size. COMPARISON: [facility], CT, CT CHEST ABD PEL W CON, 12/06/2018, 12:46. FINDINGS: Image quality: Excellent. Lung bases: Lung bases are clear. Heart size is normal. Urinary system: Right kidney: Nonobstructing 3 mm mobile stone. No hydronephrosis. Right ureter: Unremarkable. Left kidney: Development of moderate hydronephrosis with perinephric stranding. 1 mm nonobstructing lower pole stone. Left ureter: Mildly dilated to the ureterovesical junction where there is obstruction by a 2 mm stone. Bladder: Normal wall thickness. No calculi. Other solid organs: Liver is normal in size. Gallbladder is unremarkable. Pancreas is normal in contours. Spleen is normal in size. No adrenal nodules. Peritoneum and bowel: Unenhanced bowel loops demonstrate normal wall thickness and caliber. No free fluid or air. Nodes and vessels: No retroperitoneal or mesenteric adenopathy by size criteria. Aorta and inferior vena cava are normal in caliber. Abdominal wall: No ventral hernias. Pelvis: No free pelvic fluid. Small bilateral inguinal hernias containing fat. Bones: No suspicious bony lesions. No vertebral body compression fractures. IMPRESSION: 1. A 2 mm stone at the left ureterovesical junction results in moderate left hydronephrosis. 2. Small bilateral nonobstructing renal stones. Dictated by: Gurdeep Ferrara M.D. on 02/04/2019 at 10:15 Approved by: Gurdeep Ferrara M.D. on 02/04/2019 at 10:19
[2019-02-04 10:00] VITALS: BP 156/80; PULSE 60; RESP 12
[2019-02-04 11:15] VITALS: BP 160/67; PULSE 107; RESP 22; O2SAT 98
[2019-02-04] MEDS: ONDANSETRON 4 MG/2 ML INJ IV (11:26)
[2019-02-04 11:30] VITALS: BP 142/63; PULSE 68; RESP 16
== END 2019-02-04 12:04 | disposition home or self-care (01) ==
PROVIDERS: Emergency Provider Emergency Medicine; Family Provider Student in an Organized Health Care Education/Training Program; PCP Student in an Organized Health Care Education/Training Program
DX: N23 Unspecified renal colic (principal)
CPT/HCPCS: 36591; 74176; 80048; 85025; 96365; 96375; 96376; 99283; 99284; J1170; J1885; J2405

== ENCOUNTER → 2019-02-11 14:49 | Outpatient (CLI) | payer OTHER, SELFPAY | PROVIDERS: PCP Student in an Organized Health Care Education/Training Program; Visit Provider Student in an Organized Health Care Education/Training Program | DX: N20.0 Calculus of kidney (principal) | CPT/HCPCS: 82365 ==

== ENCOUNTER 2019-04-11 06:48 | Day surgery (SDC) | payer OTHER, SELFPAY ==
[2019-04-11] VITALS (7 sets, daily range): BP systolic 119–144; BP diastolic 66–82; PULSE 69–86; RESP 12–16; TEMP 36.3–36.4; O2SAT 74–97; BMI 30.2
--- NOTE | 2019-04-11 | PATH_ITS ---
[facility] Accession Number: [id number] . 01 Material submitted: . colon - COLON POLYP AT 50 CM . 02 Diagnosis: Colon, Polyp at 50 cm, Biopsy: Colonic mucosa with no diagnostic abnormality, consistent with polypoid redundancy. Additional levels were examined. Negative for dysplasia and malignancy. V 04/15/2019 1350 Local . 02 Electronically signed: . Mary Woods MD, Pathologist NPI- [id number] . 01 Gross description: . COLON POLYP AT 50 CM: Received in formalin is 1 fragment(s) of casiano, soft tissue measuring 0.2 x 0.2 x 0.2 cm which is entirely submitted and submitted entirely in 1 cassette(s) /[facility] 04/11/2019 1926 Local . 02 Pathologist provided ICD-10: K63.5 . 02 CPT . 446660 Performed at: 01 [facility] [address], [place], [place] [id number] MD Kranthi Restrepo MD Phone: [phone] Performed at: 02 [facility] [address] [place], [place] [id number] MD Mary Woods MD Phone: [phone]
[2019-04-11] MEDS: SODIUM CHLORIDE 0.9% 1,000 ML 200 ML IV (07:35)
--- NOTE | 2019-04-11 08:06 | PM.HP.1 ---
History of Present Illness History of Present Illness Date Patient Seen: 04/11/19 Time Patient Seen: 08:00 Chief complaint: [id number] SCREENING COLONOSCOPY Narrative: Patient is a gentleman here for screening colonoscopy. Last exam was over 10 years ago. No history of polyps and no family history of colon cancer. No blood per rectum. Patient History Medical History ADHD (attention deficit hyperactivity disorder) (Chronic 2009) Allergic rhinitis (Chronic) Chickenpox (Resolved 1955) Chronic venous insufficiency (05/29/17) Femur fracture (Acute) Fractured elbow (Acute ~1979) Fractures (Resolved) Gastroesophageal reflux disease without esophagitis (Chronic 05/31/16) GERD (gastroesophageal reflux disease) (Chronic) Hearing loss (Chronic) Hemorrhoids (Resolved 1994) Hx of staphylococcal infection (Resolved 2010) Hyperlipemia (Chronic) Hypertension (Chronic) Impaired vision (Acute) Insomnia (Chronic) Kidney stones (Resolved 1997) Lymphoma (Chronic) Malaise and fatigue (Acute) Measles (Resolved 1957) Mumps (Resolved 1956) NHL (non-Hodgkin's lymphoma) (Chronic) Port-A-Cath in place (Acute) Primary insomnia (06/23/16) Pure hypercholesterolemia (Chronic 05/31/16) Rosacea (Chronic 2003) Sleep apnea (Chronic 2001) Surgical History History of bone marrow biopsy (Resolved) Hx of bone graft (Resolved 2009) Hx of surgical procedure (Resolved) Family History Father Cancer Mother No problems noted. Grandfather Cancer Sister Cancer Social History marital status: household members: spouse and friend(s) Smoking Status: Former smoker alcohol intake: current Family & Social History Family History Father Cancer Mother No problems noted. Grandfather Cancer Sister Cancer Social History: household members spouse,friend(s) Tobacco & Substance use: Tobacco type cigarettes Smoking Status Former smoker alcohol intake current alcohol intake frequency holiday/special occasion Substance Use Type marijuana Meds Home Medications and Allergies Home Medications Medication Instructions Recorded Confirmed Type [compression stocking] SEE INSTRUCTIONS #1 05/30/17 11/01/18 Rx acetaminophen [Tylenol Extra 1,000 mg PO Q6HP PRN #0 10/25/17 04/11/19 History Strength] atorvastatin 20 mg tablet 20 mg PO HS #90 tab 11/01/18 04/11/19 Rx trazodone 100 mg tablet 100 mg PO HS #90 tab 11/01/18 04/11/19 Rx omeprazole 20 mg tablet,delayed 20 mg PO DAILY #90 tab 12/05/18 04/11/19 Rx release sildenafil (antihypertensive) 20 20 mg PO DAILY PRN #30 tab 03/19/19 04/11/19 Rx mg tablet Allergies Allergy/AdvReac Type Severity Reaction Status Date / Time bacitracin Allergy Unknown Verified 11/01/18 13:39 [From TRIPLE ANTIBIOTIC] Iodine and Iodide Containing Allergy Unknown Verified 11/01/18 13:39 Produc [IODINE AND IODIDE CONTAINING PRODUC] neomycin Allergy Unknown Verified 11/01/18 13:39 [From TRIPLE ANTIBIOTIC] polymyxin B Allergy Unknown Verified 11/01/18 13:39 [From TRIPLE ANTIBIOTIC] Review of Systems Review of Systems ROS Unobtainable: All systems reviewed & are unremarkable except as noted in HPI and below Exam Vital Signs (past 8 hours): - 04/11/19 07:19 Temperature 97.6 F Pulse Rate 75 Respiratory Rate 14 Blood Pressure 126/79 Pulse Oximetry 97 Oxygen Delivery Method Room Air Narrative Exam Narrative: Pleasant cooperative patient no apparent distress. Lungs are clear to auscultation. No rales or rhonchi. Heart regular rate and rhythm no murmur gallop. Abdomen is soft nontender without mass. No obvious hernias. Patient is alert and oriented x3. Assessment & Plan Assessment & Plan narrative: The patient for a screening colonoscopy. I have discussed the procedure with them. Risks of bleeding, perforation which would necessitate major operation, failure to find remove all lesions, the potential tattoo were all discussed. All questions were answered. They wished to proceed.
--- NOTE | 2019-04-11 08:07 | PM.PREOP ---
Pre-operative Note Interval Note History & Physical reviewed/Exam performed by Physician: Yes Changes to H&P: No ASA Class (for procedural sedation): II
--- NOTE | 2019-04-11 08:29 | SUR.OPER ---
Nose bleed from right nare due to nasal trumpet placement attempt on that side by Dr. Bernal. Nasal Trumpet placed in left nare by Dr. Bernal.
[2019-04-11] MEDS: SCOPOLAMINE 1 PATCH TOP (08:38)
[2019-04-11] MEDS: ONDANSETRON 4 MG/2 ML INJ IV (08:39)
[2019-04-11] MEDS: MIDAZOLAM 5 MG/5 ML VIAL IV (08:39)
--- NOTE | 2019-04-11 08:39 | PM.OP.ENDO ---
Operative Date/Time/Diagnoses Date of procedure: 04/11/19 Time of procedure: 08:39 Pre-op diagnosis: Screening for colon cancer. Last exam over 10 years ago. Post-op diagnosis: same (Diverticulosis. Internal hemorrhoids. One possible polyp.) Procedure & Clinicians Study performed: Colonoscopy with cold biopsy Same procedure as scheduled: Yes Indications: Screening Surgeon: Josias Bernal Procedure Notes SCOAP/Timeout: Performed Procedure in detail: The patient was placed in the left lateral decubitus position and underwent IV sedation directed by the surgeon consisting of fentanyl and Versed. Digital exam was remarkable for an enlarged firm smooth prostate. The scope was inserted and advanced through the rectum into the sigmoid, descending, transverse, and ascending colon. Sigmoid diverticulosis was noted.. The cecum was reached identified by the ileocecal valve and the appendiceal opening. The scope was gradually brought out. One possible Polyp was found at 50 cm and was biopsied and removed. The scope ultimately was retroflexed in the rectum. The appearance was remarkable for internal hemorrhoids. The scope was removed and the patient tolerated the procedure well. Prep was very good. Scope withdrawal time: 9 minutes Sedation minutes: 22 Findings: diverticulosis, polyp (Possible) and other findings (Enlarged prostate) Specimen(s): other (Polypoid lesion) Complications: none Post-procedure Recommendations: Colonscopy in 10 years Follow up: as needed Disposition: PACU
[2019-04-11] MEDS: fentaNYL 250 MCG/5 ML INJ IV (08:40)
== END 2019-04-11 09:33 | disposition home or self-care (01) ==
PROVIDERS: PCP Student in an Organized Health Care Education/Training Program; Referring Provider Internal Medicine Hematology & Oncology; Visit Provider Specialist
PROC: 0DJD8ZZ Inspection of Lower Intestinal Tract, Via Natural or Artificial Opening Endoscopic (ICD-10-PCS; CPT 45378; principal; 2019-04-11 07:45)
DX: Z12.11 Encounter for screening for malignant neoplasm of colon (principal); K57.30 Diverticulosis of large intestine without perforation or abscess without bleeding; K64.8 Other hemorrhoids; N40.0 Benign prostatic hyperplasia without lower urinary tract symptoms; K63.5 Polyp of colon
CPT/HCPCS: 45380; 99152; J2250; J2405; J3010

== ENCOUNTER → 2019-07-20 15:03 | Outpatient (CLI) | payer OTHER, SELFPAY ==
[2019-07-20 15:50] LABS: Influenza A - CEPHEID Flu A NEGATIVE (NEGATIVE); Influenza B - CEPHEID Flu B POSITIVE (NEGATIVE)
== END ==
PROVIDERS: PCP Student in an Organized Health Care Education/Training Program; Visit Provider Physician Assistant
DX: R68.89 Other general symptoms and signs (principal)
CPT/HCPCS: 87502

== ENCOUNTER → 2019-07-26 09:02 | Outpatient (CLI) | payer OTHER, SELFPAY ==
--- NOTE | 2019-07-26 | DI.RAD.S_ITS ---
PROCEDURE: XR CHEST 2V INDICATIONS: COUGH TECHNIQUE: 2 views of the chest were acquired. COMPARISON: [facility], CT, CT CHEST ABD PEL W CON, 12/06/2018, 12:46. [facility], CR, CHEST 2 VIEW, 10/25/2017, 12:03. [facility], CR, CHEST 2 VIEW, 06/21/2016, 12:20. FINDINGS: Surgical changes and devices: None. Lungs and pleura: Lungs are clear. No pleural effusions or pneumothorax. Mediastinum: Mediastinal contours are normal. Heart size is normal. Bones and chest wall: No suspicious bony abnormalities. Soft tissues appear unremarkable. IMPRESSION: No acute cardiopulmonary disease. Dictated by: Liyah Victoria M.D. on 07/26/2019 at 10:18 Approved by: Liyah Victoria M.D. on 07/26/2019 at 10:19
== END ==
PROVIDERS: PCP Student in an Organized Health Care Education/Training Program; Visit Provider Student in an Organized Health Care Education/Training Program
DX: R05 Cough (principal)
CPT/HCPCS: 71046

== ENCOUNTER → 2019-11-26 16:11 | Outpatient (CLI) | payer OTHER, SELFPAY ==
[2019-11-26 16:33] LABS: Add Manual Diff / Slide Review NO; Basophils Absolute Auto 100 /uL (0-100); Basophils Percent Auto 1.3 % (0-2); Eosinophils Absolute Auto 100 /uL (0-450); Eosinophils Percent Auto 1.9 % (2-4); Hematocrit 42.2 % (41-53); Lymphocytes Absolute Auto 1200 /uL (1100-4500); Mean Corpuscular HGB Conc 33.3 % (30-36); Mean Corpuscular Hemoglobin 30.1 PG (26-34); Mean Corpuscular Volume 90.5 fL (80-100); Monocytes Absolute Auto 700 /uL (0-900); Monocytes Percent Auto 12.4 % (3-14); Neutrophils Absolute Auto 3600 /uL (1500-7000); Neutrophils Percent Auto 63.4 % (50-75); Platelet Count 206 X10^3/uL (150-400); Red Blood Cell Count 4.66 X10^6/uL (4.5-5.9); Red Cell Distribution Width 14.3 % (11.6-14.8); White Blood Cell Count 5.6 X10^3/uL (4.5-11.0)
[2019-11-26 16:45] LABS: Alanine Aminotransferase 23 IU/L (<50); Albumin 4.4 g/dL (3.5-5.0); Albumin Globulin Ratio 1.4 (1.0-2.8); Alkaline Phosphatase 83 U/L (38-126); Aspartate Aminotransferase 28 IU/L (17-59); BUN Creatinine Ratio 17.8 (6-22); Bilirubin Total 0.3 mg/dL (0.2-1.3); Blood Urea Nitrogen 16 mg/dL (9-20); Calcium 8.9 mg/dL (8.4-10.2); Carbon Dioxide 29 mmol/L (22-32); Chloride 102 mmol/L (98-107); Estimated Glomerular Filt Rate > 60.0 mL/min (>60); Globulin 3.2 g/dL (1.7-4.1); Glucose 100 mg/dL (80-110); HEMOLYSIS < 15 (0-50); Lactate Dehydrogenase 486 U/L (313-618); Potassium 3.9 mmol/L (3.4-5.1); Sodium 138 mmol/L (137-145); Total Protein 7.6 g/dL (6.3-8.2)
== END ==
PROVIDERS: PCP Student in an Organized Health Care Education/Training Program; Referring Provider Internal Medicine Hematology & Oncology; Visit Provider Internal Medicine Hematology & Oncology
DX: C85.90 Non-Hodgkin lymphoma, unspecified, unspecified site (principal)
CPT/HCPCS: 36415; 80053; 83615; 85025

== ENCOUNTER → 2020-05-22 15:58 | Outpatient (CLI) | payer OTHER, SELFPAY ==
[2020-05-22 16:14] LABS: Add Manual Diff / Slide Review NO; Basophils Absolute Auto 0 /uL (0-100); Basophils Percent Auto 0.7 % (0-2); Eosinophils Absolute Auto 100 /uL (0-450); Eosinophils Percent Auto 1.6 % (2-4); Hematocrit 43.3 % (41-53); Hemoglobin 14.3 g/dL (13.5-17.5); Lymphocytes Absolute Auto 1300 /uL (1100-4500); Lymphocytes Percent Auto 19.5 % (25-40); Mean Corpuscular Hemoglobin 29.8 PG (26-34); Mean Corpuscular Volume 90.5 fL (80-100); Monocytes Absolute Auto 800 /uL (0-900); Monocytes Percent Auto 11.8 % (3-14); Neutrophils Absolute Auto 4500 /uL (1500-7000); Neutrophils Percent Auto 66.4 % (50-75); Platelet Count 212 X10^3/uL (150-400); Red Blood Cell Count 4.78 X10^6/uL (4.5-5.9); Red Cell Distribution Width 14.3 % (11.6-14.8); White Blood Cell Count 6.8 X10^3/uL (4.5-11.0)
[2020-05-22 16:25] LABS: Alanine Aminotransferase 23 IU/L (<50); Albumin 4.4 g/dL (3.5-5.0); Albumin Globulin Ratio 1.4 (1.0-2.8); Alkaline Phosphatase 78 U/L (38-126); Aspartate Aminotransferase 27 IU/L (17-59); BUN Creatinine Ratio 21.6 (6-22); Bilirubin Total 0.4 mg/dL (0.2-1.3); Blood Urea Nitrogen 22 mg/dL (9-20); Calcium 8.4 mg/dL (8.4-10.2); Carbon Dioxide 31 mmol/L (22-32); Chloride 102 mmol/L (98-107); Estimated Glomerular Filt Rate > 60.0 mL/min (>60); Globulin 3.1 g/dL (1.7-4.1); Glucose 101 mg/dL (80-110); HEMOLYSIS 34 (0-50); Lactate Dehydrogenase 503 U/L (313-618); Potassium 4.5 mmol/L (3.4-5.1); Sodium 139 mmol/L (137-145); Total Protein 7.5 g/dL (6.3-8.2)
== END ==
PROVIDERS: PCP Student in an Organized Health Care Education/Training Program; Referring Provider Internal Medicine Hematology & Oncology; Visit Provider Internal Medicine Hematology & Oncology
DX: C85.90 Non-Hodgkin lymphoma, unspecified, unspecified site (principal)
CPT/HCPCS: 36415; 80053; 83615; 85025

== ENCOUNTER → 2020-10-01 16:20 | Outpatient (CLI) | payer OTHER, SELFPAY ==
[2020-10-01] MEDS: COVID-19 VACC, Ad26(JANSSEN)/PF 0.5 ML IM (16:49)
== END ==
PROVIDERS: PCP Student in an Organized Health Care Education/Training Program; Visit Provider Internal Medicine
DX: Z23 Encounter for immunization (principal)
CPT/HCPCS: 0031A; 91303

== ENCOUNTER → 2021-08-18 08:27 | Outpatient (CLI) | payer OTHER, SELFPAY ==
--- NOTE | 2021-08-18 08:29 | DI.MRI.S_ITS ---
PROCEDURE: MR HEAD/BRAIN WO/W CON INDICATIONS: melanoma, dizziness TECHNIQUE: Noncontrast axial T1 spin echo, axial T2 fast spin echo, sagittal and axial FLAIR, coronal T2 fast spin echo, axial gradient echo, axial diffusion and ADC through the brain. After the administration of contrast, axial and coronal T1 spin echo with fat saturation through the brain. COMPARISON: None. FINDINGS: Image quality: Excellent. CSF spaces: Basal cisterns are patent. No extra-axial fluid collections. Ventricles are normal in size and shape. Brain: No midline shift. No intracranial bleeds or masses. No abnormal intracranial enhancement. There is cerebral volume loss for age. There is periventricular white matter chronic small vessel ischemic change. The brainstem appears normal. Diffusion-weighted images demonstrate no acute ischemic insults. No chronic ischemic insults. Normal intravascular flow voids are present. In this patient with this given history, scrutiny is given to cerebellopontine angle cisterns and to the internal auditory canals. To the limits of this standard protocol study, no masses or abnormal enhancement can be seen within these regions. Skull and face: Calvarial marrow is normal in signal. Orbits appear normal. Sinuses: There is [id number] mucosal thickening within the right maxillary sinus, with moderate mucosal thickening within the ethmoid air cells. Milder mucosal thickening is seen elsewhere within the paranasal sinuses. There is focal moderate mucosal thickening within the left mastoid air cells. IMPRESSION: Unremarkable intracranial study for age, without an imaging explanation found for the patient's presenting history dizziness. No masses or abnormal enhancement can be seen. Note is made of age-appropriate brain parenchymal volume loss and chronic small vessel ischemic changes. No findings of acute or subacute infarction can be seen. Dictated by: Benton Junior M.D. on 08/18/2021 at 8:44 Approved by: Benton Junior M.D. on 08/18/2021 at 8:46
--- NOTE | 2021-08-18 08:40 | DI.CT.S_ITS ---
PROCEDURE: CT CHEST WO CON INDICATIONS: lung crackles, on immunotherapy TECHNIQUE: Noncontrast 5 mm thick sections acquired from the pulmonary apices to the posterior costophrenic angles. 1 mm lung window, 5 mm thick coronal and sagittal and 7 mm axial MIP reformats were then acquired. For radiation dose reduction, the following was used: automated exposure control, adjustment of mA and/or kV according to patient size. COMPARISON: [facility], CT, CT CHEST ABD PEL W CON, 12/06/2018, 12:46. FINDINGS: Image quality: Excellent. Lungs and pleura: Small opacity at the right cardiophrenic angle, (3/238), new. Right lower lobe ground-glass opacity, (3/196), unchanged. Subtle opacity in the left upper lobe, (3/121), unchanged. No pleural effusions or pneumothorax. Central and peripheral airways are patent and normal in caliber. Mediastinum: Heart size is normal. No pericardial effusion. No mediastinal adenopathy by size criteria. Thoracic aorta and central pulmonary arteries are normal in size. Esophagus is normal in caliber. No hiatal hernia. Bones and chest wall: Right-sided port with the catheter tip at the middle 3rd of the SVC. No suspicious bony lesions. No vertebral body compression fractures. No axillary or supraclavicular adenopathy by size criteria. Left axillary clips. Thyroid gland is unremarkable. Abdomen: Visualized upper abdominal solid organs and bowel loops appear normal in the absence of contrast. IMPRESSION: 1. Small focus of ground-glass opacity at the right cardiophrenic angle which is new compared to the CT from 2019. This could be due to infectious/inflammatory etiology. Overall this is very mild and the clinical significance is uncertain. 2. Two additional small foci of ground-glass opacity are unchanged since 2019. 3. No adenopathy. Dictated by: Parker Abbott M.D. on 08/18/2021 at 9:17 Approved by: Parker Abbott M.D. on 08/18/2021 at 9:28
== END ==
PROVIDERS: PCP Student in an Organized Health Care Education/Training Program; Referring Provider Internal Medicine Hematology & Oncology; Visit Provider Internal Medicine Hematology & Oncology
DX: C43.9 Malignant melanoma of skin, unspecified (principal); R42 Dizziness and giddiness; R09.89 Other specified symptoms and signs involving the circulatory and respiratory systems; Z92.25 Personal history of immunosuppression therapy
CPT/HCPCS: 70553; 71250

== ENCOUNTER → 2021-12-08 10:13 | Outpatient (CLI) | payer MEDICARE, OTHER, SELFPAY ==
[2021-12-08 12:42] LABS: Cholesterol 166 mg/dL (140-199); HDL Cholesterol 50 mg/dL (40-60); LDL Cholesterol Calculated 99 mg/dL (<100); Triglycerides 83 mg/dL (35-150)
[2021-12-08 13:11] LABS: Prostate Specific Antigen Scrn 1.77 ng/mL (0.1-4.0)
== END ==
PROVIDERS: PCP Student in an Organized Health Care Education/Training Program; Referring Provider Student in an Organized Health Care Education/Training Program; Visit Provider Student in an Organized Health Care Education/Training Program
DX: E78.00 Pure hypercholesterolemia, unspecified (principal); Z12.5 Encounter for screening for malignant neoplasm of prostate
CPT/HCPCS: 36415; 80061; G0103

== ENCOUNTER 2022-02-24 21:23 | Emergency (ER) | payer OTHER, MEDICARE, SELFPAY ==
[2022-02-24 21:31] VITALS: BP 188/84; PULSE 68; RESP 18; TEMP 36.6; O2SAT 97; BMI 27.8
--- NOTE | 2022-02-24 21:31 | DI.RAD.S_ITS ---
PROCEDURE: XR PELVIS 1-2V INDICATIONS: trauma, flank pain TECHNIQUE: Single view of the pelvis acquired. COMPARISON: None. FINDINGS: Bones: No fractures or dislocations. There is bilateral axial joint space narrowing, moderate on the right and [id number] on the left, with mild subchondral sclerosis. No suspicious bony lesions. Soft tissues: Visualized bowel gas pattern is normal. No suspicious soft tissue calcifications. IMPRESSION: 1. No fracture or dislocation. Dictated by: Kranthi Chisholm M.D. on 02/24/2022 at 22:58 Approved by: Kranthi Chisholm M.D. on 02/24/2022 at 22:58
--- NOTE | 2022-02-24 21:32 | DI.RAD.S_ITS ---
PROCEDURE: XR CHEST 1V INDICATIONS: trauma TECHNIQUE: One view of the chest was acquired. COMPARISON: [facility], CR, XR CHEST 2V, 07/26/2019, 9:10. FINDINGS: Surgical changes and devices: Right internal jugular Port-A-Cath is demonstrated with the tip projecting over the superior vena cava. Lungs and pleura: Lungs are clear. No pleural effusions or pneumothorax. Mediastinum: Mediastinal contours appear normal. Heart size is normal. Bones and chest wall: No displaced fractures identified. No suspicious bony lesions. Overlying soft tissues appear unremarkable. IMPRESSION: 1. No definite acute traumatic abnormality. Dictated by: Kranthi Chisholm M.D. on 02/24/2022 at 22:42 Approved by: Kranthi Chisholm M.D. on 02/24/2022 at 22:43
[2022-02-24 21:41] LABS: Add Manual Diff / Slide Review NO; Basophils Absolute Auto 100 /uL (0-100); Basophils Percent Auto 0.8 % (0-2); Eosinophils Absolute Auto 200 /uL (0-450); Eosinophils Percent Auto 1.9 % (2-4); Hematocrit 40.9 % (41-53); Hemoglobin 13.9 g/dL (13.5-17.5); Lymphocytes Absolute Auto 1800 /uL (1100-4500); Lymphocytes Percent Auto 19.5 % (25-40); Mean Corpuscular HGB Conc 34.1 % (30-36); Mean Corpuscular Hemoglobin 30.2 PG (26-34); Mean Corpuscular Volume 88.6 fL (80-100); Monocytes Absolute Auto 900 /uL (0-900); Neutrophils Absolute Auto 6200 /uL (1500-7000); Neutrophils Percent Auto 67.8 % (50-75); Platelet Count 250 X10^3/uL (150-400); Red Blood Cell Count 4.61 X10^6/uL (4.5-5.9); Red Cell Distribution Width 14.4 % (11.6-14.8); White Blood Cell Count 9.2 X10^3/uL (4.5-11.0)
--- NOTE | 2022-02-24 22:08 | DI.US.S_ITS ---
PROCEDURE: US RENAL COMPLETE INDICATIONS: flank pain, hematuria TECHNIQUE: Real-time scanning was performed of the kidneys and bladder, with image documentation. COMPARISON: Located [facility], CT, CT KIDNEY URETER BLADDER (KUB), 02/24/2022, 23:12. FINDINGS: Kidneys: Right kidney measures 9.2 cm long; left kidney measures 9.3 cm long. There is mild to moderate right hydronephrosis. The visualized proximal right ureter also appears slightly dilated. No left hydronephrosis. Bladder: Patient voided prior to study. No definite bladder mass identified. The right ureteral jet was noted with color Doppler interrogation. (Of note, ureteral jets may not be detectable in up to 25% of cases due to insufficient differences in specific gravity between ureteral and bladder urine). Miscellaneous: No free pelvic fluid. IMPRESSION: 1. Mild to moderate right hydronephrosis. Dictated by: Kranthi Chisholm M.D. on 02/24/2022 at 23:21 Approved by: Kranthi Chisholm M.D. on 02/24/2022 at 23:24
[2022-02-24 22:25] LABS: Bacteria Urine Moderate (10-30); RBC Urine >100/HPF (0-5/HPF); WBC Urine 0-1/HPF (0-5/HPF)
[2022-02-24 22:26] LABS: Culture Indicated Urine Specimen Cultured
[2022-02-24] MEDS: HYDROMORPHONE 0.5 MG INJ IV (22:30)
[2022-02-24 22:46] LABS: Alanine Aminotransferase 29 IU/L (<50); Albumin 4.2 g/dL (3.5-5.0); Albumin Globulin Ratio 1.4 (1.0-2.8); Alkaline Phosphatase 72 U/L (38-126); Aspartate Aminotransferase 37 IU/L (17-59); BUN Creatinine Ratio 16.7 (6-22); Bilirubin Total 0.6 mg/dL (0.2-1.3); Blood Urea Nitrogen 17 mg/dL (9-20); Calcium 8.6 mg/dL (8.4-10.2); Carbon Dioxide 28 mmol/L (22-32); Chloride 99 mmol/L (98-107); Estimated Glomerular Filt Rate > 60 mL/min (>60); Glucose 127 mg/dL (80-110); HEMOLYSIS < 15 (0-50); Potassium 3.6 mmol/L (3.4-5.1); Sodium 137 mmol/L (137-145); Total Protein 7.2 g/dL (6.3-8.2)
--- NOTE | 2022-02-24 23:06 | DI.CT.S_ITS ---
PROCEDURE: CT KIDNEY URETER BLADDER (KUB) INDICATIONS: flank pain, hematuria TECHNIQUE: Axial sections were acquired from the lung bases to the pubic symphysis. Coronal and sagittal reformats were performed. For radiation dose reduction, the following was used: automated exposure control, adjustment of mA and/or kV according to patient size. COMPARISON: [facility], NM, PET NECK TO MID THIGH, 09/13/2017, 12:27. NM, NM PET CT FUSION SKULL 2 THIGH, 05/30/2018, 14:50. [facility], US, US RENAL COMPLETE, 02/24/2022, 22:33. [facility], CT, CT KIDNEY URETER BLADDER (KUB), 02/04/2019, 9:56. FINDINGS: Image quality: Excellent. Lung bases: There is a small 0.4 cm pulmonary nodule in the right lower lobe which appears similar to the prior study given differences in slice acquisition. Heart: Heart is normal in size. There is a small hiatal hernia. URINARY: Right Kidney and Ureter: There is an obstructing urinary stone in the distal right ureter measuring up to 0.4 cm. There is associated mild right hydroureteronephrosis with perinephric and periureteral fat stranding. No additional right renal stones. Left Kidney and Ureter: There is a punctate nonobstructing stone within the inferior pole of the left kidney. No hydronephrosis. No hydroureter. Bladder: Normal wall thickness. No stones. ABDOMEN: Liver: Noncontrast evaluation of the liver demonstrates no discrete mass. Gallbladder: Within normal limits without calcified gallstones. Biliary ducts: No biliary ductal dilatation. Pancreas: Unremarkable. Spleen: Normal in size. Adrenal Glands: No adrenal nodules. Stomach and Bowel: Stomach, small bowel loops, and colon are normal in caliber and wall thickness. Appendix is normal in appearance. Peritoneum: No abnormal intraperitoneal fluid. No free air. Ventral Wall: No hernia. Abdominal Nodes: No retroperitoneal or mesenteric adenopathy by size criteria. Vessels: Aorta and inferior vena cava are normal in size. PELVIS: Pelvic Organs: Unremarkable. Pelvic Nodes: No enlarged lymph nodes. Miscellaneous: No inguinal hernias identified. Bones: There are a few small sclerotic foci redemonstrated most prominent within the left ilium. There is also a sclerotic focus within the left superior pubic ramus measuring up to 0.8 cm which is increased in size from 0.4 cm on the prior CT. IMPRESSION: 1. Obstructing urinary stone within the distal right ureter with mild right hydroureteronephrosis. 2. Punctate nonobstructing left renal stone. 3. No evidence of appendicitis. 4. Scattered sclerotic foci within the bony pelvis are nonspecific but likely represent bone islands. These include a 0.8 cm lesion in the left superior pubic ramus which is slightly increased in size compared to the prior CT. If clinically indicated, a follow-up bone scan may be performed for further evaluation. Dictated by: Kranthi Chisholm M.D. on 02/24/2022 at 23:36 Approved by: Kranthi Chisholm M.D. on 02/24/2022 at 23:41
[2022-02-24] MEDS: LIDOCAINE 2% 6.1 ML in SODIUM CHLORIDE 0.9% 50 ML 336.6 ML IV (23:22)
[2022-02-24] MEDS: TAMSULOSIN 0.4 MG CAPSULE PO (23:22)
[2022-02-24] MEDS: KETOROLAC 30 MG/ML VIAL 10 MG IV (23:23)
[2022-02-25] MEDS: ONDANSETRON 4 MG ODT PREPACK 1 BOTTLE MISC (00:42)
[2022-02-25] MEDS: HYDROCODONE/ACET 5/325 PREPACK 1 BOTTLE MISC (00:42)
[2022-02-25 00:45] VITALS: BP 169/76; PULSE 63; RESP 18; O2SAT 98
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
== END 2022-02-25 00:48 | disposition home or self-care (01) ==
PROVIDERS: Emergency Provider Emergency Medicine; PCP Student in an Organized Health Care Education/Training Program
DX: N20.0 Calculus of kidney (principal); C43.59 Malignant melanoma of other part of trunk; C77.3 Secondary and unspecified malignant neoplasm of axilla and upper limb lymph nodes; E03.9 Hypothyroidism, unspecified; Z85.72 Personal history of non-Hodgkin lymphomas
CPT/HCPCS: 36591; 71045; 72170; 74176; 76770; 80053; 81003; 81015; 84443; 85025; 87086; 96365; 96375; 96523; 99214; 99284; 99285; J1170; J1885

== ENCOUNTER → 2022-03-11 12:11 | Outpatient (CLI) | payer MEDICARE, OTHER, SELFPAY ==
--- NOTE | 2022-03-11 12:13 | DI.RAD.S_ITS ---
PROCEDURE: XR KUB INDICATIONS: Kidney stones TECHNIQUE: One view of the abdomen acquired. COMPARISON: [facility], CT, CT KIDNEY URETER BLADDER (KUB), 02/24/2022, 23:12. FINDINGS: Surgical changes and devices: None. Bowel: Bowel gas pattern is normal. Soft tissues: A 3 mm calculus is seen projecting over the right pelvis, which may represent the previously seen right ureteral calculus and may be located near the ureterovesicular junction or within the bladder. Previously seen left renal calculus is not visualized and may be obscured by overlying bowel gas. Visualized solid organ contours appear normal in size. Bones: Left iliac bone island is noted. Degenerative changes are seen in the spine and in the hips. IMPRESSION: 3 mm calculus projecting over the right pelvis may represent the previously seen right ureteral calculus at the region of the right ureterovesicular junction or bladder. Dictated by: Choco Mccullough M.D. on 03/11/2022 at 14:14 Approved by: Choco Mccullough M.D. on 03/11/2022 at 14:18
== END ==
PROVIDERS: PCP Student in an Organized Health Care Education/Training Program; Referring Provider Urology; Visit Provider Urology
DX: N20.0 Calculus of kidney (principal)
CPT/HCPCS: 74018

== ENCOUNTER → 2022-03-21 09:08 | Outpatient (CLI) | payer MEDICARE, OTHER, SELFPAY ==
--- NOTE | 2022-03-21 09:09 | DI.RAD.S_ITS ---
PROCEDURE: XR KUB INDICATIONS: Kidney stone TECHNIQUE: One view of the abdomen acquired. COMPARISON: [facility], CT, CT KIDNEY URETER BLADDER (KUB), 02/24/2022, 23:12. [facility], CR, XR KUB, 03/11/2022, 12:31. FINDINGS: Surgical changes and devices: None. Bowel: Bowel gas pattern is normal. Soft tissues: 3 millimeter calcification in the right pelvis adjacent to the coccyx is unchanged and is probably phlebolith [address] No suspicious abdominal calcifications. Visualized solid organ contours appear normal in size. Bones: No suspicious bony lesions. IMPRESSION: No nephroureterolithiasis. Pelvic phlebolith is unchanged. Dictated by: Pj Vazquez M.D. on 03/21/2022 at 10:24 Approved by: Pj Vazquez M.D. on 03/21/2022 at 10:27
== END ==
PROVIDERS: PCP Student in an Organized Health Care Education/Training Program; Referring Provider Urology; Visit Provider Urology
DX: N20.0 Calculus of kidney (principal)
CPT/HCPCS: 74018

== ENCOUNTER 2022-03-26 01:52 | Emergency (ER) | payer MEDICARE, OTHER, SELFPAY ==
[2022-03-26 02:00] VITALS: BP 199/81; PULSE 81; RESP 18; TEMP 36.9; O2SAT 95
--- NOTE | 2022-03-26 02:37 | DI.CT.S_ITS ---
PROCEDURE: CT KIDNEY URETER BLADDER (KUB) INDICATIONS: severe flank pain, recurrent stones TECHNIQUE: Axial sections were acquired from the lung bases to the pubic symphysis. Coronal and sagittal reformats were performed. For radiation dose reduction, the following was used: automated exposure control, adjustment of mA and/or kV according to patient size. COMPARISON: [facility], CT, CT KIDNEY URETER BLADDER (KUB), 02/24/2022, 23:12. FINDINGS: Image quality: Excellent. Lung bases: Unremarkable. Heart: No significant findings. URINARY: Right Kidney: The right kidney is diffusely enlarged with perinephric fat stranding. There is moderate hydronephrosis of the right collecting system. Slightly increased in size from comparison. Right Ureter: Hydronephrosis with stone at the right ureterovesicular junction. Left Kidney: Punctate nonobstructive stones in the right kidney. Left Ureter: The ureter is normal. Bladder: Normal wall thickness. Casper catheter.. ABDOMEN: Liver: Unremarkable. Gallbladder: Normal Biliary ducts: Unremarkable. Pancreas: Unremarkable. Spleen: Unremarkable. Adrenal Glands: Unremarkable. Stomach and Bowel: Stomach, small bowel loops, and colon are unremarkable. Peritoneum: No abnormal intraperitoneal fluid. No free air. Ventral Wall: No hernia. Abdominal Nodes: No enlarged retroperitoneal or mesenteric lymph nodes. Vessels: Aorta and inferior vena cava are normal in size. PELVIS: Pelvic Organs: Unremarkable. Pelvic Nodes: Unremarkable. Miscellaneous: No inguinal hernias are seen. Bones: No concerning osseous lesions. IMPRESSION: 1. Small distal ureteral stone at the ureteral vesicular junction and marked right hydronephrosis. 2. Punctate nonobstructing left renal stone. No significant discrepancies from prior interpretation. Dictated by: Raza Smith M.D. on 03/26/2022 at 6:50 Approved by: Raza Smith M.D. on 03/26/2022 at 6:58
[2022-03-26] MEDS: KETOROLAC 30 MG/ML VIAL 15 MG IV (02:42)
--- NOTE | 2022-03-26 02:43 | ED_ITS ---
HPI - Male Genitourinary General Chief complaint: Urogenital-Male Stated complaint: unable to urinate Time Seen by Provider: 03/26/22 02:06 Source: patient Mode of arrival: Ambulatory History of Present Illness HPI Narrative: 71-year-old male nonsmoker with history of recent known right-sided kidney stone presents with a chief complaint of severe flank pain and inability to urinate over the course of the night. He denies any fever chills nor nausea or vomiting. He denies chest pain, shortness of breath or cough. He states that he had been fine in his normal state of health and over the course of the night developed inability to urinate. Related Data Home Medications Medication Instructions Recorded Confirmed cholecalciferol (vitamin D3) 25 1,000 unit DAILY 12/24/20 03/24/22 mcg (1,000 unit) capsule (Vitamin D3) diphenhydramine HCl 25 mg capsule 25 mg PO BEDTIME 12/24/20 03/24/22 Previous Rx's Medication Instructions Recorded atorvastatin 20 mg tablet (Lipitor) 20 mg PO HS #90 tabs 11/12/21 levothyroxine 100 mcg tablet 100 mcg PO DAILY #90 tabs 11/12/21 trazodone 100 mg tablet 100 mg PO HS #90 tabs 11/12/21 omeprazole 20 mg tablet,delayed 20 mg PO DAILY #90 tabs 12/09/21 release tamsulosin 0.4 mg capsule (Flomax) 0.4 mg PO DAILY #30 caps 03/26/22 Allergies Allergy/AdvReac Type Severity Reaction Status Date / Time bacitracin Allergy Unknown Verified 03/24/22 09:20 [From TRIPLE ANTIBIOTIC] Iodine and Iodide Containing Allergy Unknown Verified 03/24/22 09:20 Produc [IODINE AND IODIDE CONTAINING PRODUC] neomycin Allergy Unknown Verified 03/24/22 09:20 [From TRIPLE ANTIBIOTIC] polymyxin B Allergy Unknown Verified 03/24/22 09:20 [From TRIPLE ANTIBIOTIC] Review of Systems Review of Systems Narrative: GENERAL: Denies chills, fatigue, malaise, fever, sweats. HEENT: Denies sinus pain, ear pain, sore throat, difficulty swallowing, dizziness. RESPIRATORY: Denies dyspnea, cough, wheezing, hemoptysis, sputum. CARDIOVASCULAR: Denies chest pain, palpitations, orthopnea, edema, GASTROINTESTINAL: Denies nausea, vomiting, abdominal pain, diarrhea, constipation, melena. : See HPI MUSCULOSKELETAL: denies weakness, joint pain, or bony pain SKIN: Denies rash, skin lesions, or other NEUROLOGIC: Denies weakness, headache, numbness, change in speech, confusion, seizures, incoordination. PSYCHIATRIC: No concerning psychosocial issues. 12 point review of systems is negative except for those stated above Patient History Medical History ADHD (attention deficit hyperactivity disorder) (2009) Allergic rhinitis Chickenpox (1955) Chronic venous insufficiency (05/29/17) Erectile dysfunction Femur fracture Fractured elbow (~1979) Fractures Gastroesophageal reflux disease without esophagitis (05/31/16) GERD (gastroesophageal reflux disease) Hearing loss Hemorrhoids (1994) Hx of staphylococcal infection (2010) Hyperlipemia Hypertension Impaired vision Insomnia Kidney stones (1997) Lymphoma Malaise and fatigue Malignant melanoma Measles (1957) Mumps (1956) NHL (non-Hodgkin's lymphoma) Port-A-Cath in place Primary insomnia (06/23/16) Pure hypercholesterolemia (05/31/16) Rosacea (2003) Sleep apnea (2001) Surgical History H/O vasectomy History of bone marrow biopsy Hx of bone graft (2009) Hx of surgical procedure Family History Father Cancer Mother No problems noted. Grandfather Cancer Sister Cancer Social History marital status: household members: spouse and friend(s) Smoking Status: Never smoker alcohol intake: current Type(s) of exercise: walking frequency: daily Smoking Status: Never smoker alcohol intake frequency: holidays/special occasions only Substance Use Type: marijuana Exam Narrative Exam Narrative: GENERAL: [71] year old patient appears stated age. Well-developed patient, in mild distress. HEAD: Atraumatic. Normocephalic. EYES: Pupils equal round and reactive. Extraocular motions intact. No scleral icterus. No injection or drainage. ENT: Nose without bleeding, purulent drainage. Throat without erythema, tonsillar hypertrophy or exudate. Airway patent. NECK: Trachea midline. Non tender CARDIOVASCULAR: Regular rate and rhythm without murmurs, gallops, or rubs. RESPIRATORY: Clear to auscultation. Breath sounds equal bilaterally. No wheezes, rales, or rhonchi. GASTROINTESTINAL: Abdomen soft, non-tender, nondistended. EXTREMITIES: No edema or joint tenderness. BACK: Nontender without deformity or crepitance. No flank tenderness. NEURO: AOx3. SKIN: No rash or erythema of visible areas Initial Vital Signs Initial Vital Signs: Vital Signs Temperature 98.5 F 03/26/22 02:00 Pulse Rate 81 03/26/22 02:00 Respiratory Rate 18 03/26/22 02:00 Blood Pressure 199/81 H 03/26/22 02:00 Pulse Oximetry 95 03/26/22 02:00 Oxygen Delivery Method 03/26/22 02:00 Course Course Course Narrative: Bedside ultrasound notes approximately 200 cc in the bladder postvoid residual, nursing to place Casper catheter Casper placed with q.day, 18 Mongolian and about 150 cc urine out and bag, patient is still having significant right flank pain Orders Ordered: ED Orders 03/26/22 02:37 CT kidney ureter bladder (KUB) Stat 03/26/22 02:48 Basic Metabolic Panel Stat Complete Blood Count AUTO DIFF Stat Discontinued Medications Ketorolac Tromethamine (Ketorolac 30 Mg/Ml Vial) 15 mg IV NOW ONE Stop: 03/26/22 02:38 Last Admin: 03/26/22 02:42 Dose: 15 mg Documented By: EB Vital Signs Vital signs: Vital Signs - 8 hr 03/26/22 02:00 Temperature 98.5 F Pulse Rate 81 Respiratory Rate 18 Blood Pressure 199/81 H Pulse Oximetry 95 Oxygen Delivery Method Room Air MDM - Male Genitourinary Lab Data Result diagrams: 03/26/22 02:48 03/26/22 02:48 Labs: Lab Results 03/26/22 03/26/22 Range/Units 02:48 02:48 WBC 8.7 (4.5-11.0) X10^3/uL RBC 4.24 L (4.5-5.9) X10^6/uL Hgb 12.6 L (13.5-17.5) g/dL Hct 37.2 L (41-53) % MCV 87.8 (80-100) fL MCH 29.7 (26-34) PG MCHC 33.8 (30-36) % RDW 14.2 (11.6-14.8) % Plt Count 187 (150-400) X10^3/uL Neut % (Auto) 71.6 (50-75) % Lymph % (Auto) 11.8 L (25-40) % [place] % (Auto) 12.4 (3-14) % Eos % (Auto) 3.1 (2-4) % Baso % (Auto) 1.1 (0-2) % Neut # (Auto) 6200 (0046-3273) /uL Lymph # (Auto) 1000 L (2275-5681) /uL [place] # (Auto) 1100 H (0-900) /uL Eos # (Auto) 300 (0-450) /uL Baso # (Auto) 100 (0-100) /uL Sodium 139 (137-145) mmol/L Potassium 3.8 (3.4-5.1) mmol/L Chloride 103 (98-107) mmol/L Carbon Dioxide 31 (22-32) mmol/L BUN 26 H (9-20) mg/dL Creatinine 1.37 H (0.66-1.25) mg/dL Estimated GFR 56 L (>60) mL/min BUN/Creatinine Ratio 19.0 (6-22) Glucose 136 H (80-110) mg/dL Calcium 7.9 L (8.4-10.2) mg/dL Imaging Data CT scan - abdomen/pelvis: Radiologist's Impression: Small distal right ureteral stone pronounced right hydroureteronephrosis Discharge Plan Departure Patient Disposition: Home Clinical Impression: Acute urinary retention, Kidney stone on right side, Hydroureter on right Instructions: DI for Kidney Stones, DI for Urinary Retention in Men Activity Restrictions/Additional Instructions: *You have been diagnosed with [kidney stone and urinary retention] *What to do: *Please continue to take your regular medications as directed. [ x] New medication prescriptions sent to your pharmacy: [ [facility]] [ ] New medication written as a paper prescription [ ] No new medications given *Please follow up with your primary care provider in 2-3 days, call for an appointment. Let them know you were seen in the Emergency Department and that we ask that you be seen in follow up. We will electronically transmit a record of today's note if your PCP is in our system * please contact Dr. Guadarrama at the Urology office, let them know that you were seen in the emergency department and we would like you seen in follow-up. *Return to Emergency Department if you should have any new, worsening or concerning symptoms, such as [fever greater than 101 F, shaking chills, worsening pain, persistent vomiting or other bothersome symptoms] Prescriptions: New tamsulosin [Flomax] 0.4 mg capsule 0.4 mg PO DAILY Qty: 30 0RF No Action omeprazole 20 mg tablet,delayed release (DR/EC) 20 mg PO DAILY Qty: 90 3RF atorvastatin [Lipitor] 20 mg tablet 20 mg PO HS Qty: 90 3RF levothyroxine 100 mcg tablet 100 mcg PO DAILY Qty: 90 3RF trazodone 100 mg tablet 100 mg PO HS Qty: 90 3RF diphenhydramine HCl [Antihistamine] 25 mg Capsule 25 mg PO BEDTIME cholecalciferol (vitamin D3) [Vitamin D3] 25 mcg (1,000 unit) Capsule 1,000 unit DAILY Referrals: Josef Gomez MD [Primary Care Provider] - Francoise Guadarrama MD [Physician] - Visit Report Forms: Patient Portal/API
[2022-03-26 02:58] LABS: Add Manual Diff / Slide Review NO; Basophils Absolute Auto 100 /uL (0-100); Basophils Percent Auto 1.1 % (0-2); Eosinophils Absolute Auto 300 /uL (0-450); Eosinophils Percent Auto 3.1 % (2-4); Hematocrit 37.2 % (41-53); Hemoglobin 12.6 g/dL (13.5-17.5); Lymphocytes Absolute Auto 1000 /uL (1100-4500); Lymphocytes Percent Auto 11.8 % (25-40); Mean Corpuscular HGB Conc 33.8 % (30-36); Mean Corpuscular Hemoglobin 29.7 PG (26-34); Mean Corpuscular Volume 87.8 fL (80-100); Monocytes Absolute Auto 1100 /uL (0-900); Monocytes Percent Auto 12.4 % (3-14); Neutrophils Absolute Auto 6200 /uL (1500-7000); Neutrophils Percent Auto 71.6 % (50-75); Platelet Count 187 X10^3/uL (150-400); Red Blood Cell Count 4.24 X10^6/uL (4.5-5.9); Red Cell Distribution Width 14.2 % (11.6-14.8); White Blood Cell Count 8.7 X10^3/uL (4.5-11.0)
[2022-03-26 03:04] LABS: Blood Urea Nitrogen 26 mg/dL (9-20); Calcium 7.9 mg/dL (8.4-10.2); Carbon Dioxide 31 mmol/L (22-32); Chloride 103 mmol/L (98-107); Estimated Glomerular Filt Rate 56 mL/min (>60); Glucose 136 mg/dL (80-110); HEMOLYSIS 15 (0-50); Potassium 3.8 mmol/L (3.4-5.1); Sodium 139 mmol/L (137-145)
[2022-03-26 04:25] VITALS: PULSE 78; RESP 18; O2SAT 98
== END 2022-03-26 04:26 | disposition home or self-care (01) ==
PROVIDERS: Emergency Provider Emergency Medicine; PCP Student in an Organized Health Care Education/Training Program
DX: N20.0 Calculus of kidney (principal); R33.8 Other retention of urine; N13.4 Hydroureter; Z87.442 Personal history of urinary calculi
CPT/HCPCS: 74176; 80048; 85025; 96374; 99284; J1885

== ENCOUNTER → 2022-03-29 10:43 | Outpatient (CLI) | payer MEDICARE, OTHER, SELFPAY ==
--- NOTE | 2022-03-29 10:44 | DI.RAD.S_ITS ---
PROCEDURE: XR KUB INDICATIONS: Kidney stone TECHNIQUE: One view of the abdomen acquired. COMPARISON: [facility], CR, XR KUB, 03/11/2022, 12:31. [facility], CR, XR KUB, 03/21/2022, 9:16. [facility], CT, CT KIDNEY URETER BLADDER (KUB), 03/26/2022, 2:45. FINDINGS: Surgical changes and devices: None. Bowel: Bowel gas pattern is normal. Soft tissues: There is a persistent appearance of right lower pelvic calcification which has been unchanged. Finding is suspected to represent phleboliths. A 2nd calcification overlying the bladder shadow near the ureterovesicular junction is identified suggestive of recently passed stone. Visualized solid organ contours appear normal in size. Bones: No suspicious bony lesions. IMPRESSION: Calcification overlying the bladder shadow suggestive of recently passed stone. Dictated by: Marci San M.D. on 03/29/2022 at 16:07 Approved by: Marci San M.D. on 03/29/2022 at 16:09
== END ==
PROVIDERS: PCP Student in an Organized Health Care Education/Training Program; Referring Provider Urology; Visit Provider Urology
DX: N13.4 Hydroureter (principal); N20.0 Calculus of kidney; R33.8 Other retention of urine
CPT/HCPCS: 74018

== ENCOUNTER → 2022-04-06 12:29 | Outpatient (CLI) | payer MEDICARE, OTHER, SELFPAY ==
[2022-04-11 12:38] LABS: Ca oxalate monohydr 100 % (.); Size 3x3 mm (.)
== END ==
PROVIDERS: PCP Student in an Organized Health Care Education/Training Program; Visit Provider Urology
DX: N20.0 Calculus of kidney (principal)
CPT/HCPCS: 82365

== ENCOUNTER → 2022-04-13 12:12 | Outpatient (CLI) | payer OTHER, MEDICARE, SELFPAY ==
--- NOTE | 2022-04-13 12:15 | DI.RAD.S_ITS ---
PROCEDURE: XR KUB INDICATIONS: Kidney stone TECHNIQUE: One view of the abdomen acquired. COMPARISON: [facility], CT, CT KIDNEY URETER BLADDER (KUB), 03/26/2022, 2:45. [facility], CR, XR KUB, 03/29/2022, 10:53. FINDINGS: Surgical changes and devices: None. Bowel: Bowel gas pattern is normal. Soft tissues: There is a 3 mm calcification projecting to the right bladder base. Visualized solid organ contours appear normal in size. Bones: No suspicious bony lesions. IMPRESSION: Possible 3 mm stone in the right bladder base. Dictated by: Liyah Victoria M.D. on 04/13/2022 at 17:35 Approved by: Liyah Victoria M.D. on 04/13/2022 at 17:37
== END ==
PROVIDERS: PCP Student in an Organized Health Care Education/Training Program; Referring Provider Urology; Visit Provider Urology
DX: N13.4 Hydroureter (principal); N20.0 Calculus of kidney
CPT/HCPCS: 74018

== ENCOUNTER → 2022-04-21 10:12 | Outpatient (CLI) | payer MEDICARE, OTHER, SELFPAY ==
[2022-04-21 12:05] LABS: Calcium 8.8 mg/dL (8.4-10.2)
[2022-04-24 07:36] LABS: Calcium 8.9 mg/dL (8.6-10.2); Parathyroid Hormone, Intact 12 pg/mL (15-65)
== END ==
PROVIDERS: PCP Student in an Organized Health Care Education/Training Program; Referring Provider Urology; Visit Provider Urology
DX: N13.2 Hydronephrosis with renal and ureteral calculous obstruction (principal); N52.8 Other male erectile dysfunction; R39.9 Unspecified symptoms and signs involving the genitourinary system; Z87.448 Personal history of other diseases of urinary system
CPT/HCPCS: 36415; 81002; 82310; 83970; 84550; 99213

== ENCOUNTER → 2022-08-17 13:17 | Outpatient (CLI) | payer MEDICARE, OTHER, SELFPAY ==
--- NOTE | 2022-08-17 13:20 | DI.RAD.S_ITS ---
PROCEDURE: XR KUB INDICATIONS: History of kidney stones TECHNIQUE: One view of the abdomen acquired. COMPARISON: [facility], CR, XR KUB, 03/29/2022, 10:53. [facility], CT, CT KIDNEY URETER BLADDER (KUB), 03/26/2022, 2:45. [facility], CR, XR KUB, 04/13/2022, 12:27. FINDINGS: Surgical changes and devices: None. Bowel: Bowel gas pattern is normal. Soft tissues: No suspicious abdominal calcifications. Visualized solid organ contours appear normal in size. 3 mm calcification again seen projected over the inferior right hemipelvis Bones: No suspicious bony lesions. IMPRESSION: 1. 3 mm calcification again seen projected over the right inferior right hemipelvis which may represent distal right ureteral stone or possible bladder stone. Findings appears similar prior exam. Dictated by: Jarred COOK Interpreted: Scooter Smith MD on 08/17/2022 at 16:26 Transcribed by: HUDSON on 08/17/2022 at 16:28 Approved by: Scooter Smith M.D. on 08/18/2022 at 8:46
== END ==
PROVIDERS: PCP Student in an Organized Health Care Education/Training Program; Referring Provider Urology; Visit Provider Urology
DX: N20.0 Calculus of kidney (principal)
CPT/HCPCS: 74018

== ENCOUNTER → 2023-02-03 12:30 | Outpatient (CLI) | payer MEDICARE, OTHER, SELFPAY | PROVIDERS: PCP Student in an Organized Health Care Education/Training Program; Visit Provider Physician Assistant | DX: L08.9 Local infection of the skin and subcutaneous tissue, unspecified (principal) | CPT/HCPCS: 87070; 87075; 87077; 87147; 87186; 87205 ==

== ENCOUNTER → 2023-02-25 12:05 | Outpatient (CLI) | payer MEDICARE, OTHER, SELFPAY ==
--- NOTE | 2023-02-25 12:07 | DI.RAD.S_ITS ---
PROCEDURE: XR KUB INDICATIONS: Kidney stones TECHNIQUE: One view of the abdomen acquired. COMPARISON: [facility], , XR KUB, 08/17/2022, 13:21. FINDINGS: Surgical changes and devices: None. Bowel: Bowel gas pattern is normal. Soft tissues: No suspicious abdominal calcifications. Visualized solid organ contours appear normal in size. No suspected calculi are seen overlying the renal shadows or expected location of the ureters. Bones: No suspicious bony lesions. IMPRESSION: No nephroureteral calculi identified. Dictated by: Pj Vazquez M.D. on 02/25/2023 at 15:39 Approved by: Pj Vazquez M.D. on 02/25/2023 at 15:40
== END ==
PROVIDERS: PCP Student in an Organized Health Care Education/Training Program; Referring Provider Urology; Visit Provider Urology
DX: N20.0 Calculus of kidney (principal)
CPT/HCPCS: 74018

== ENCOUNTER → 2023-03-01 10:22 | Outpatient (CLI) | payer MEDICARE, OTHER, SELFPAY ==
[2023-03-01 11:34] LABS: Appearance Urine UA CLOUDY; Bilirubin Urine UA NEGATIVE (NEGATIVE); Color Urine UA YELLOW; Glucose Urine UA NEGATIVE (Negative); Ketones Urine UA NEGATIVE (NEGATIVE); Leukocyte Esterase Urine UA NEGATIVE (NEGATIVE); Nitrite Urine UA NEGATIVE (Negative); Occult Blood Urine UA TRACE-INTACT (Negative); Protein Urine UA NEGATIVE (Negative); Specific Gravity Urine UA 1.025 (1.000-1.035); Urobilinogen Urine UA 0.2 E.U./dL (0.2)
[2023-03-01 11:38] LABS: Amorphous Sediment Urine 3+; Bacteria Urine None Seen; Culture Indicated Urine Cult Not Indicated; RBC Urine None Seen (0-5/HPF); Squamous Epithelial Cell Urine None Seen (0-5/HPF); WBC Urine None Seen (0-5/HPF)
== END ==
PROVIDERS: PCP Student in an Organized Health Care Education/Training Program; Referring Provider Urology; Visit Provider Urology
DX: N13.2 Hydronephrosis with renal and ureteral calculous obstruction (principal); N20.0 Calculus of kidney; R39.9 Unspecified symptoms and signs involving the genitourinary system
CPT/HCPCS: 81001

== ENCOUNTER → 2023-08-21 10:29 | Outpatient (CLI) | payer MEDICARE, OTHER, SELFPAY ==
[2023-08-21 10:51] LABS: Add Manual Diff / Slide Review NO; Basophils Absolute Auto 100 /uL (0-100); Basophils Percent Auto 0.7 % (0-2); Eosinophils Absolute Auto 100 /uL (0-450); Eosinophils Percent Auto 0.8 % (2-4); Hematocrit 41.1 % (41-53); Hemoglobin 13.7 g/dL (13.5-17.5); Lymphocytes Absolute Auto 1100 /uL (1100-4500); Lymphocytes Percent Auto 15.3 % (25-40); Mean Corpuscular HGB Conc 33.4 % (30-36); Mean Corpuscular Hemoglobin 30.2 PG (26-34); Mean Corpuscular Volume 90.3 fL (80-100); Monocytes Absolute Auto 500 /uL (0-900); Monocytes Percent Auto 7.2 % (3-14); Neutrophils Absolute Auto 5600 /uL (1500-7000); Platelet Count 225 X10^3/uL (150-400); Red Blood Cell Count 4.55 X10^6/uL (4.5-5.9); Red Cell Distribution Width 14.4 % (11.6-14.8); White Blood Cell Count 7.4 X10^3/uL (4.5-11.0)
[2023-08-21 11:02] LABS: Alanine Aminotransferase 19 IU/L (<50); Albumin 4.1 g/dL (3.5-5.0); Albumin Globulin Ratio 1.3 (1.0-2.8); Alkaline Phosphatase 75 U/L (38-126); Aspartate Aminotransferase 24 IU/L (17-59); BUN Creatinine Ratio 14.8 (6-22); Bilirubin Total 0.5 mg/dL (0.2-1.3); Blood Urea Nitrogen 18 mg/dL (9-20); Calcium 8.9 mg/dL (8.4-10.2); Carbon Dioxide 29 mmol/L (22-32); Chloride 100 mmol/L (98-107); Estimated Glomerular Filt Rate > 60 mL/min (>60); Globulin 3.1 g/dL (1.7-4.1); Glucose 128 mg/dL (80-110); HEMOLYSIS < 15 (0-50); Lactate Dehydrogenase 171 U/L (120-246); Potassium 4.1 mmol/L (3.4-5.1); Sodium 135 mmol/L (137-145); Total Protein 7.2 g/dL (6.3-8.2)
== END ==
LOC: LAB 10:30
PROVIDERS: PCP Family Medicine; Referring Provider Internal Medicine Hematology & Oncology; Visit Provider Internal Medicine Hematology & Oncology
DX: C83.30 Diffuse large B-cell lymphoma, unspecified site (principal); C43.9 Malignant melanoma of skin, unspecified; E03.9 Hypothyroidism, unspecified
CPT/HCPCS: 36415; 80053; 83615; 85025

== ENCOUNTER → 2023-09-30 09:14 | Outpatient (CLI) | payer MEDICARE, OTHER, SELFPAY ==
[2023-09-30 10:47] LABS: Add Manual Diff / Slide Review NO; Basophils Absolute Auto 0 /uL (0-100); Basophils Percent Auto 0.9 % (0-2); Eosinophils Absolute Auto 100 /uL (0-450); Eosinophils Percent Auto 1.6 % (2-4); Hematocrit 40.3 % (41-53); Hemoglobin 13.5 g/dL (13.5-17.5); Lymphocytes Absolute Auto 1300 /uL (1100-4500); Lymphocytes Percent Auto 25.7 % (25-40); Mean Corpuscular HGB Conc 33.6 % (30-36); Mean Corpuscular Hemoglobin 30.3 PG (26-34); Mean Corpuscular Volume 90.1 fL (80-100); Monocytes Absolute Auto 500 /uL (0-900); Monocytes Percent Auto 10.8 % (3-14); Neutrophils Absolute Auto 3100 /uL (1500-7000); Platelet Count 222 X10^3/uL (150-400); Red Blood Cell Count 4.47 X10^6/uL (4.5-5.9); Red Cell Distribution Width 14.2 % (11.6-14.8)
[2023-09-30 11:52] LABS: Alanine Aminotransferase 27 IU/L (<50); Albumin Globulin Ratio 1.4 (1.0-2.8); Alkaline Phosphatase 68 U/L (38-126); Aspartate Aminotransferase 36 IU/L (17-59); BUN Creatinine Ratio 16.8 (6-22); Bilirubin Total 0.6 mg/dL (0.2-1.3); Blood Urea Nitrogen 18 mg/dL (9-20); Calcium 8.5 mg/dL (8.4-10.2); Carbon Dioxide 31 mmol/L (22-32); Chloride 106 mmol/L (98-107); Cholesterol 153 mg/dL (140-199); Estimated Glomerular Filt Rate > 60 mL/min (>60); Globulin 2.8 g/dL (1.7-4.1); Glucose 105 mg/dL (80-110); HDL Cholesterol 58 mg/dL (40-60); HEMOLYSIS < 15 (0-50); LDL Cholesterol Calculated 77 mg/dL (<100); Potassium 4.3 mmol/L (3.4-5.1); Sodium 139 mmol/L (137-145); Total Protein 6.8 g/dL (6.3-8.2); Triglycerides 91 mg/dL (35-150)
[2023-09-30 12:23] LABS: TSH w/ Reflex to FT4 0.86 uIU/mL (0.47-4.68)
== END ==
LOC: LAB 09:15
PROVIDERS: PCP Family Medicine; Referring Provider Family Medicine; Visit Provider Family Medicine
DX: E03.9 Hypothyroidism, unspecified (principal); N40.0 Benign prostatic hyperplasia without lower urinary tract symptoms; K21.9 Gastro-esophageal reflux disease without esophagitis; E78.00 Pure hypercholesterolemia, unspecified; F51.01 Primary insomnia
CPT/HCPCS: 36415; 80053; 80061; 84443; 85025

== ENCOUNTER → 2024-01-04 10:26 | Outpatient (CLI) | payer MEDICARE, OTHER, SELFPAY ==
--- NOTE | 2024-01-04 10:28 | DI.RAD.S_ITS ---
PROCEDURE: XR CHEST 2V INDICATIONS: eval bronchitis TECHNIQUE: 2 views of the chest were acquired. COMPARISON: [facility], CR, XR CHEST 1V, 02/24/2022, 21:59. FINDINGS: Surgical changes and devices: None. Lungs and pleura: Lungs are clear. No pleural effusions or pneumothorax. Mediastinum: Mediastinal contours are normal. Heart size is normal. Bones and chest wall: No suspicious bony abnormalities. Soft tissues appear unremarkable. IMPRESSION: No acute cardiopulmonary abnormality is seen. Dictated by: Lara oHgan M.D. on 01/04/2024 at 14:24 Approved by: Lara Hogan M.D. on 01/04/2024 at 14:25
== END ==
PROVIDERS: PCP Family Medicine; Referring Provider Family Medicine; Visit Provider Family Medicine
DX: J20.9 Acute bronchitis, unspecified (principal)
CPT/HCPCS: 71046

== ENCOUNTER 2024-01-19 15:46 | Emergency (ER) | payer MEDICARE, OTHER, SELFPAY ==
[2024-01-19] VITALS (10 sets, daily range): BP systolic 161–192; BP diastolic 72–83; PULSE 67–76; RESP 16; TEMP 36.5; O2SAT 16–99; BMI 29.7
[2024-01-19 16:14] LABS: Add Manual Diff / Slide Review NO; Basophils Absolute Auto 100 /uL (0-100); Basophils Percent Auto 0.7 % (0-2); Eosinophils Absolute Auto 0 /uL (0-450); Eosinophils Percent Auto 0.3 % (2-4); Hematocrit 41.1 % (41-53); Hemoglobin 13.6 g/dL (13.5-17.5); Lymphocytes Absolute Auto 1100 /uL (1100-4500); Lymphocytes Percent Auto 9.5 % (25-40); Mean Corpuscular HGB Conc 33.2 % (30-36); Mean Corpuscular Hemoglobin 30.1 PG (26-34); Mean Corpuscular Volume 90.6 fL (80-100); Monocytes Absolute Auto 1200 /uL (0-900); Monocytes Percent Auto 9.7 % (3-14); Neutrophils Absolute Auto 9500 /uL (1500-7000); Neutrophils Percent Auto 79.8 % (50-75); Platelet Count 187 X10^3/uL (150-400); Red Blood Cell Count 4.53 X10^6/uL (4.5-5.9); Red Cell Distribution Width 14.5 % (11.6-14.8); White Blood Cell Count 11.9 X10^3/uL (4.5-11.0)
[2024-01-19 16:18] LABS: Bacteria Urine Occasional (0-1); Culture Indicated Urine Cult Not Indicated; RBC Urine 0-1/HPF (0-5/HPF); Squamous Epithelial Cell Urine None Seen (0-5/HPF); Urine Volume 10mL (spun); WBC Urine 0-1/HPF (0-5/HPF)
[2024-01-19 16:21] LABS: Alanine Aminotransferase 27 IU/L (<50); Albumin 4.2 g/dL (3.5-5.0); Albumin Globulin Ratio 1.3 (1.0-2.8); Alkaline Phosphatase 68 U/L (38-126); Aspartate Aminotransferase 27 IU/L (17-59); BUN Creatinine Ratio 15.6 (6-22); Bilirubin Total 0.6 mg/dL (0.2-1.3); Blood Urea Nitrogen 17 mg/dL (9-20); Calcium 8.4 mg/dL (8.4-10.2); Carbon Dioxide 33 mmol/L (22-32); Chloride 101 mmol/L (98-107); Estimated Glomerular Filt Rate > 60 mL/min (>60); Globulin 3.2 g/dL (1.7-4.1); Glucose 121 mg/dL (80-110); HEMOLYSIS 26 (0-50); Lipase 55 U/L (23-300); Potassium 4.1 mmol/L (3.4-5.1); Sodium 135 mmol/L (137-145); Total Protein 7.4 g/dL (6.3-8.2)
--- NOTE | 2024-01-19 17:49 | DI.CT.S_ITS ---
PROCEDURE: CT ABDOMEN PELVIS W CON INDICATIONS: Left flank and generalized abd pain TECHNIQUE: After the administration of intravenous contrast, axial sections acquired from the lung bases to the pubic symphysis. Coronal and sagittal reformats were performed. For radiation dose reduction, the following was used: automated exposure control, adjustment of mA and/or kV according to patient size. COMPARISON: [facility], CT, ABDOMEN/PELVIS WITH CONTRAST, 10/25/2017, 13:43. FINDINGS: Image quality: Diagnostic. Lower Chest: No significant findings. ABDOMEN: Liver: No solid mass. Gallbladder: No radiopaque gallstones or wall thickening. Biliary ducts: No biliary dilation. Pancreas: No ductal dilation. Spleen: Size is within normal limits. Adrenal Glands: No adrenal nodules. Kidneys and Ureters: Nonobstructing punctate left inferior pole calculus. No hydronephrosis. No solid mass. No complex renal cystic lesion which requires follow up. Stomach and Bowel: Small hiatal hernia. Normal colonic caliber, without significant wall thickening. Normal caliber appendix in the right lower quadrant. Peritoneum: No abnormal intraperitoneal fluid. No free air. Ventral Wall: No significant ventral hernia. Abdominal Nodes: No retroperitoneal or mesenteric adenopathy by size criteria. Vessels: Aorta and inferior vena cava are normal in size. PELVIS: Pelvic Organs: Mildly enlarged prostate. Bladder: No bladder wall thickening, accounting for underdistention. Pelvic Nodes: No enlarged lymph nodes. Miscellaneous: No inguinal hernias are seen. Bones: No aggressive osseous abnormality. Degenerative changes without acute vertebral body compression fracture. IMPRESSION: Nonobstructing punctate left inferior calculus. No hydronephrosis. Small hiatal hernia. No other acute findings in the abdomen pelvis to explain patient's symptoms. Approved by: Geraldine Colon M.D.,Ph.D. on 01/19/2024 at 17:35
--- NOTE | 2024-01-19 17:51 | ED.ABDPAIN ---
HPI - Abdominal Pain <Josefina Garcia PA-C - Last Filed: 01/19/24 20:18> General Chief Complaint: Abdominal Pain Stated Complaint: thinks passing a kidney stone Time Seen by Provider: 01/19/24 16:14 Source: patient and family Mode of arrival: Family Vehicle History of Present Illness HPI narrative: This is a 73-year-old male with history of BPH, kidney stones, hydronephrosis hypothyroid non-Hodgkin's lymphoma who presents to the ER with concern for 3 days of left flank pain and some abdominal discomfort. Patient states he feels like this could be a kidney stone as he has had a fairly persistent dull pain in his left flank that is sometimes feels sharp and is worse with movements sometimes such as turning or bending. He states that it is a bit different than previous stones in that he does not feel like the pain has moved at all and he has not really had a progression of symptoms other than the pain becoming a little more intense today. Yesterday Tylenol and ibuprofen relieved his symptoms. He states he has had normal intake and out go but has had a bit of a ?sour stomach? with some generalized abdominal discomfort across his entire low/mid abdomen. He endorses 7/10 pain that Tylenol has not been helping with much today. He states he takes Flomax regularly for his BPH. He does state he was working on an outdoor project for the last couple weeks moving some rocks around but nothing ?big?. He does not remember any specific injury or heavy lifting that might have caused his symptoms. He does state initially he thought this could be musculoskeletal but then felt it was more like a kidney stone and could not explain why he was having some sour stomach and abdominal upset as well. So came in for further evaluation. Denies chest pain, shortness of breath, fatigue, nausea, dizziness, lightheadedness, upper back pain, vomiting, diarrhea constipation hematuria, change in urine output or frequency fevers, chills or any other symptoms or complaints. He states his blood pressures tend to run on the high side in the 160s typically. His plans to pick him up tonight from the ER he will not be driving. Related Data Home Medications Medication Instructions Recorded Confirmed cholecalciferol (vitamin D3) 25 1,000 unit PO DAILY 06/21/22 01/04/24 mcg (1,000 unit) capsule (Vitamin D3) ketoconazole 2 % topical cream 1 applic topical 12/28/23 01/04/24 Previous Rx's Medication Instructions Recorded omeprazole 20 mg tablet,delayed 20 mg PO DAILY #90 tabs 06/23/23 release triamcinolone acetonide 0.1 % 1 applic topical BID PRN 06/29/23 topical cream dermatitis #454 grams atorvastatin 20 mg tablet (Lipitor) 20 mg PO HS #90 tabs 10/10/23 levothyroxine 88 mcg tablet 88 mcg PO DAILY hypothyroidism #90 10/10/23 tabs trazodone 100 mg tablet 100 mg PO BEDTIME #90 tabs 10/10/23 albuterol sulfate 90 mcg/actuation 2 puff inhalation Q4-6H PRN 12/28/23 aerosol inhaler shortness of breath or wheezing #6.7 grams inhalational spacing device #1 ea 12/28/23 (BreatheRite MDI Spacer) tamsulosin 0.4 mg capsule 0.4 mg PO ONCE PM #90 caps 01/08/24 Arnuity Ellipta 100 mcg/actuation 1 inh inhalation DAILY #30 ea 01/11/24 powder for inhalation (fluticasone furoate) pantoprazole 20 mg tablet,delayed 20 mg PO DAILY 20 days #20 tabs 01/19/24 release (Protonix) Allergies Allergy/AdvReac Type Severity Reaction Status Date / Time bacitracin Allergy Unknown Verified 01/19/24 15:52 [From TRIPLE ANTIBIOTIC] Iodine and Iodide Containing Allergy Unknown Verified 01/19/24 15:52 Produc [IODINE AND IODIDE CONTAINING PRODUC] neomycin Allergy Unknown Verified 01/19/24 15:52 [From TRIPLE ANTIBIOTIC] polymyxin B Allergy Unknown Verified 01/19/24 15:52 [From TRIPLE ANTIBIOTIC] Review of Systems <Josefina Garcia PA-C - Last Filed: 01/19/24 20:18> Review of Systems Narrative: See HPI Patient History <Josefina Garcia PA-C - Last Filed: 01/19/24 20:18> Medical History Allergic dermatitis Osteoarthritis Medicare annual wellness visit, subsequent Encounter for well adult exam without abnormal findings BPH (benign prostatic hyperplasia) Lower urinary tract symptoms Calcium oxalate stones Erectile dysfunction Malignant melanoma Insomnia Hyperlipemia Hypertension Hx of staphylococcal infection (2010) Fractures ADHD (attention deficit hyperactivity disorder) (2009) Allergic rhinitis Rosacea (2003) Sleep apnea (2001) Chickenpox (195) Measles (8) Mumps (1956) Hemorrhoids (1994) Kidney stones (1997) Hearing loss Lymphoma Malaise and fatigue Fractured elbow (~1979) Femur fracture Port-A-Cath in place Impaired vision Chronic venous insufficiency (05/29/17) Primary insomnia (06/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 Grandfather Cancer Sister Cancer Social History marital status: household members: spouse and friend(s) Smoking Status: Never smoker alcohol intake: current Type(s) of exercise: walking frequency: daily Smoking Status: Never smoker alcohol intake frequency: holidays/special occasions only Substance Use Type: marijuana Exam <Josefina Garcia PA-C - Last Filed: 01/19/24 20:18> Narrative Exam Narrative: GENERAL: 73 year old patient appears stated age. Well-developed patient, in mild distress. HEAD: Atraumatic. Normocephalic. EYES: Pupils equal round and reactive. Extraocular motions intact. No scleral icterus. No injection or drainage. ENT: Nose without bleeding, purulent drainage. Airway patent. NECK: Trachea midline. Non tender CARDIOVASCULAR: Regular rate and rhythm without murmurs, gallops, or rubs. RESPIRATORY: Clear to auscultation. Breath sounds equal bilaterally. No wheezes, rales, or rhonchi. GASTROINTESTINAL: There is mild generalized abdominal tenderness all quadrants, no McBurney's point tenderness or Rovsing sign Abdomen soft, protuberant, nondistended; there is left flank tenderness and CVA tenderness. EXTREMITIES: No edema or joint tenderness. BACK: Nontender without deformity or crepitance. Left flank tenderness. NEURO: AOx3. SKIN: No rash or erythema of visible areas Initial Vital Signs Initial Vital Signs: Vital Signs Temperature 97.7 F 01/19/24 15:47 Pulse Rate 76 01/19/24 15:47 Respiratory Rate 16 01/19/24 15:47 Blood Pressure 166/75 H 01/19/24 15:47 Pulse Oximetry 16 L 01/19/24 15:47 Oxygen Delivery Method Room Air 01/19/24 15:47 <Dhaval Eddy MD - Last Filed: 01/20/24 06:17> Initial Vital Signs Initial Vital Signs: Vital Signs Temperature 97.7 F 01/19/24 15:47 Pulse Rate 76 01/19/24 15:47 Respiratory Rate 16 01/19/24 15:47 Blood Pressure 166/75 H 01/19/24 15:47 Pulse Oximetry 16 L 01/19/24 15:47 Oxygen Delivery Method Room Air 01/19/24 15:47 Course <Josefina Garcia PA-C - Last Filed: 01/19/24 20:18> Course Course Narrative: Reexamined the patient and discussed the results of imaging and labs with him. His CT does not show concerning findings that would explain his pain today. He did do a fair amount of moving of rocks for an outdoor project over the past few weeks and stopped doing this 4 days ago. This certainly could explain his left flank pain and psoas involvement could potentially explain his abdominal discomfort. He does state that his abdominal discomfort feels somewhat similar to when he had a duodenal ulcer. And that chocolate has been bothering his stomach more lately. Will give Protonix and see if this improves his symptoms somewhat. If so anticipate sending him out with plan for him to follow up with General surgery, possibly GI he may need a repeat upper endoscopy he has not had 1 since 2015. And 2 week course of PPI. 1899 Rechecked the patient who only received the Protonix a few minutes ago and states it does not seem to have done much yet, he does state that his pain is a little bothersome again and would like more medicine. Confirmed his plans to pick him up from the ER [facility]. Additional 0.5 mg Dilaudid ordered. 1952 Patient later acknowledges just prior to discharge that he recently binged on 7 layer bars with chocolate in them and thinks this could have contributed to his stomach upset. 2010 Orders Ordered: Discontinued Medications Hydromorphone HCl (Hydromorphone 0.5 Mg Inj) 0.5 mg IV NOW ONE Stop: 01/19/24 17:50 Last Admin: 01/19/24 18:10 Dose: 0.5 mg Documented By: EVERETTE Hydromorphone HCl (Hydromorphone 0.5 Mg Inj) 0.5 mg IV NOW ONE Stop: 01/19/24 19:54 Last Admin: 01/19/24 19:58 Dose: 0.5 mg Documented By: Lactated Ringer's (Lactated Ringers) 500 mls @ 500 mls/hr IV BOLUS ONE Stop: 01/19/24 18:48 Last Infusion: 01/19/24 19:51 Dose: Infused Documented By: Admin: 01/19/24 18:11 Dose: 500 mls/hr Documented By: EVERETTE Ondansetron HCl (Ondansetron 4 Mg/2 Ml Inj) 4 mg IV NOW PRN PRN Reason: Nausea And Vomiting Ondansetron HCl (Ondansetron 4 Mg Odt) 4 mg PO NOW PRN PRN Reason: Nausea And Vomiting Ondansetron HCl (Ondansetron 4 Mg/2 Ml Inj) 4 mg IV NOW ONE Stop: 01/19/24 20:07 Last Admin: 01/19/24 20:10 Dose: 4 mg Documented By: Pantoprazole Sodium (Pantoprazole 40 Mg Vial) 20 mg IV NOW ONE Stop: 01/19/24 18:59 Last Admin: 01/19/24 19:35 Dose: 20 mg Documented By: Vital Signs Vital signs: Vital Signs - 8 hr 01/19/24 15:47 01/19/24 17:35 01/19/24 17:36 Temperature 97.7 F Pulse Rate 76 67 Respiratory Rate 16 Blood Pressure 166/75 H Pulse Oximetry 16 L 97 98 Oxygen Delivery Method Room Air 01/19/24 17:36 01/19/24 18:00 01/19/24 18:16 Temperature Pulse Rate 67 74 Respiratory Rate Blood Pressure 161/74 H Pulse Oximetry 96 97 Oxygen Delivery Method 01/19/24 18:16 01/19/24 18:30 01/19/24 18:31 Temperature Pulse Rate 73 73 Respiratory Rate Blood Pressure 186/83 H Pulse Oximetry 95 95 Oxygen Delivery Method 01/19/24 18:31 01/19/24 19:00 01/19/24 19:00 Temperature Pulse Rate 69 Respiratory Rate Blood Pressure 163/72 H 169/79 H Pulse Oximetry 94 Oxygen Delivery Method 01/19/24 19:30 01/19/24 19:30 Temperature Pulse Rate 74 Respiratory Rate Blood Pressure 170/79 H Pulse Oximetry 96 Oxygen Delivery Method <Dhaval Eddy MD - Last Filed: 01/20/24 06:17> Orders Ordered: Discontinued Medications Hydromorphone HCl (Hydromorphone 0.5 Mg Inj) 0.5 mg IV NOW ONE Stop: 01/19/24 17:50 Last Admin: 01/19/24 18:10 Dose: 0.5 mg Documented By: EVERETTE Hydromorphone HCl (Hydromorphone 0.5 Mg Inj) 0.5 mg IV NOW ONE Stop: 01/19/24 19:54 Last Admin: 01/19/24 19:58 Dose: 0.5 mg Documented By: Lactated Ringer's (Lactated Ringers) 500 mls @ 500 mls/hr IV BOLUS ONE Stop: 01/19/24 18:48 Last Infusion: 01/19/24 19:51 Dose: Infused Documented By: Admin: 01/19/24 18:11 Dose: 500 mls/hr Documented By: EVERETTE Ondansetron HCl (Ondansetron 4 Mg/2 Ml Inj) 4 mg IV NOW PRN PRN Reason: Nausea And Vomiting Ondansetron HCl (Ondansetron 4 Mg Odt) 4 mg PO NOW PRN PRN Reason: Nausea And Vomiting Ondansetron HCl (Ondansetron 4 Mg/2 Ml Inj) 4 mg IV NOW ONE Stop: 01/19/24 20:07 Last Admin: 01/19/24 20:10 Dose: 4 mg Documented By: Pantoprazole Sodium (Pantoprazole 40 Mg Vial) 20 mg IV NOW ONE Stop: 01/19/24 18:59 Last Admin: 01/19/24 19:35 Dose: 20 mg Documented By: Vital Signs Vital signs: Vital Signs - 8 hr 01/19/24 15:47 01/19/24 17:35 01/19/24 17:36 Temperature 97.7 F Pulse Rate 76 67 Respiratory Rate 16 Blood Pressure 166/75 H Pulse Oximetry 16 L 97 98 Oxygen Delivery Method Room Air 01/19/24 17:36 01/19/24 18:00 01/19/24 18:16 Temperature Pulse Rate 67 74 Respiratory Rate Blood Pressure 161/74 H Pulse Oximetry 96 97 Oxygen Delivery Method 01/19/24 18:16 01/19/24 18:30 01/19/24 18:31 Temperature Pulse Rate 73 73 Respiratory Rate Blood Pressure 186/83 H Pulse Oximetry 95 95 Oxygen Delivery Method 01/19/24 18:31 01/19/24 19:00 01/19/24 19:00 Temperature Pulse Rate 69 Respiratory Rate Blood Pressure 163/72 H 169/79 H Pulse Oximetry 94 Oxygen Delivery Method 01/19/24 19:30 01/19/24 19:30 Temperature Pulse Rate 74 Respiratory Rate Blood Pressure 170/79 H Pulse Oximetry 96 Oxygen Delivery Method MDM - Abdominal Pain <Josefina Garcia PA-C - Last Filed: 01/19/24 20:18> Differential Diagnosis Differential diagnosis: Likely abdominal pain, acute appendicitis, calculus of kidney and diverticulitis (muscle strain, ulcer, GERD) Medical Records Attestation: I reviewed the patient's medical records. Lab Data Attestation: I reviewed the patient's lab results. 01/19/24 15:58 01/19/24 15:58 Labs: Lab Results 01/19/24 01/19/24 Range/Units 15:56 15:58 WBC 11.9 H (4.5-11.0) X10^3/uL RBC 4.53 (4.5-5.9) X10^6/uL Hgb 13.6 (13.5-17.5) g/dL Hct 41.1 (41-53) % MCV 90.6 (80-100) fL MCH 30.1 (26-34) PG MCHC 33.2 (30-36) % RDW 14.5 (11.6-14.8) % Plt Count 187 (150-400) X10^3/uL Neut % (Auto) 79.8 H (50-75) % Lymph % (Auto) 9.5 L (25-40) % [place] % (Auto) 9.7 (3-14) % Eos % (Auto) 0.3 L (2-4) % Baso % (Auto) 0.7 (0-2) % Neut # (Auto) 9500 H (4237-1717) /uL Lymph # (Auto) 1100 (9469-2671) /uL [place] # (Auto) 1200 H (0-900) /uL Eos # (Auto) 0 (0-450) /uL Baso # (Auto) 100 (0-100) /uL Sodium 135 L (137-145) mmol/L Potassium 4.1 (3.4-5.1) mmol/L Chloride 101 (98-107) mmol/L Carbon Dioxide 33 H (22-32) mmol/L BUN 17 (9-20) mg/dL Creatinine 1.09 (0.66-1.25) mg/dL Estimated GFR > 60 (>60) mL/min BUN/Creatinine Ratio 15.6 (6-22) Glucose 121 H (80-110) mg/dL Calcium 8.4 (8.4-10.2) mg/dL Total Bilirubin 0.6 (0.2-1.3) mg/dL AST 27 (17-59) IU/L ALT 27 (<50) IU/L Alkaline Phosphatase 68 (38-126) U/L Total Protein 7.4 (6.3-8.2) g/dL Albumin 4.2 (3.5-5.0) g/dL Globulin 3.2 (1.7-4.1) g/dL Albumin/Globulin Ratio 1.3 (1.0-2.8) Lipase 55 (23-300) U/L Urine RBC 0-1/hpf (0-5/HPF) Urine WBC 0-1/hpf (0-5/HPF) Ur Squamous Epith Cells None seen (0-5/HPF) Urine Bacteria Occasional (0-1) (None) Ur Culture Indicated? Cult not indicated Vol Urine Centrifuged 10ml (spun) Point of care testing: Urine Dip Bedside Urine Glucose Negative Bedside Urine Bilirubin - Negative Bedside Urine Ketone - Negative Urine Specific [place] 1.010 Bedside Urine Occult Blood + Bedside Urine pH 6.0 Bedside Urine Protein - Negative Bedside Urine Urobilinogen - Negative Bedside Urine Nitrite - Negative Bedside Urine Leukocytes - Negative Esterase Imaging Data CT scan - abdomen/pelvis: My Impression: Agree with Radiology interpretation Radiologist's Impression: [address] [address] [address] Scan Report Signed Patient: Raza Frankel MR#: [id number] : 1950 Acct:[id number] Age/Sex: 73 / M Date of Service: 01/19/24 Loc: ED Accession Number: [id number] Procedure: CT abdomen pelvis w con Ordering Provider: Josefina Garcia P.A-C PROCEDURE: CT ABDOMEN PELVIS W CON INDICATIONS: Left flank and generalized abd pain TECHNIQUE: After the administration of intravenous contrast, axial sections acquired from the lung bases to the pubic symphysis. Coronal and sagittal reformats were performed. For radiation dose reduction, the following was used: automated exposure control, adjustment of mA and/or kV according to patient size. COMPARISON: [facility], CT, ABDOMEN/PELVIS WITH CONTRAST, 10/25/2017, 13:43. FINDINGS: Image quality: Diagnostic. Lower Chest: No significant findings. ABDOMEN: Liver: No solid mass. Gallbladder: No radiopaque gallstones or wall thickening. Biliary ducts: No biliary dilation. Pancreas: No ductal dilation. Spleen: Size is within normal limits. Adrenal Glands: No adrenal nodules. Kidneys and Ureters: Nonobstructing punctate left inferior pole calculus. No hydronephrosis. No solid mass. No complex renal cystic lesion which requires follow up. Stomach and Bowel: Small hiatal hernia. Normal colonic caliber, without significant wall thickening. Normal caliber appendix in the right lower quadrant. Peritoneum: No abnormal intraperitoneal fluid. No free air. Ventral Wall: No significant ventral hernia. Abdominal Nodes: No retroperitoneal or mesenteric adenopathy by size criteria. Vessels: Aorta and inferior vena cava are normal in size. PELVIS: Pelvic Organs: Mildly enlarged prostate. Bladder: No bladder wall thickening, accounting for underdistention. Pelvic Nodes: No enlarged lymph nodes. Miscellaneous: No inguinal hernias are seen. Bones: No aggressive osseous abnormality. Degenerative changes without acute vertebral body compression fracture. IMPRESSION: Nonobstructing punctate left inferior calculus. No hydronephrosis. Small hiatal hernia. No other acute findings in the abdomen pelvis to explain patient's symptoms. Approved by: Geraldine Colon M.D.,Ph.D. on 01/19/2024 at 17:35 MDM Narrative Medical decision making narrative: This is a well-appearing 73-year-old male presenting with concern for left flank pain and also some at generalized abdominal pain for the past 3 days that has been worsening. No fevers or other concerning infectious symptoms, does have a history of kidney stones and BPH. Patient feels this could be a kidney stone however atypical for him to have persistent worsening pain without change in symptoms or progression of stone. Given he has generalized abdominal tenderness on exam and mild leukocytosis on his labs, CT with contrast is ordered for further evaluation given there are other possible etiologies besides kidney stone/ureterolithiasis for his symptoms. Patient is given Zofran as well as Dilaudid for pain relief and 500 mL fluid bolus. He has a very subtle leukocytosis of 11.9, otherwise labs are fairly unremarkable; CT shows a small hiatal hernia, and there is a kidney stone that is nonobstructing in the left kidney, neither which I think are likely to explain all the patient's symptoms today. Patient did do frequent lifting and moving of rocks in the last couple of weeks stopping 3 or 4 days ago, there certainly possibility that he sustained a muscle strain that could explain his left flank tenderness as it is worse with movements. His abdominal discomfort with ?sour stomach?, is less likely explained by this, he does have a history of duodenal ulcer for which she had treatment and EGD back in 2016. He has not had any blood in his stool or dark tarry stools recently; and H&H today are unremarkable. He receives Protonix today, and is encouraged to follow up with both his PCP and consider seeing GI and General surgery for further evaluation of his abdominal discomfort. Return to the ER if he has new or worsening symptoms. <Dhaval Eddy MD - Last Filed: 01/20/24 06:17> Lab Data Labs: Lab Results 01/19/24 01/19/24 Range/Units 15:56 15:58 WBC 11.9 H (4.5-11.0) X10^3/uL RBC 4.53 (4.5-5.9) X10^6/uL Hgb 13.6 (13.5-17.5) g/dL Hct 41.1 (41-53) % MCV 90.6 (80-100) fL MCH 30.1 (26-34) PG MCHC 33.2 (30-36) % RDW 14.5 (11.6-14.8) % Plt Count 187 (150-400) X10^3/uL Neut % (Auto) 79.8 H (50-75) % Lymph % (Auto) 9.5 L (25-40) % [place] % (Auto) 9.7 (3-14) % Eos % (Auto) 0.3 L (2-4) % Baso % (Auto) 0.7 (0-2) % Neut # (Auto) 9500 H (8877-5707) /uL Lymph # (Auto) 1100 (3844-6937) /uL [place] # (Auto) 1200 H (0-900) /uL Eos # (Auto) 0 (0-450) /uL Baso # (Auto) 100 (0-100) /uL Sodium 135 L (137-145) mmol/L Potassium 4.1 (3.4-5.1) mmol/L Chloride 101 (98-107) mmol/L Carbon Dioxide 33 H (22-32) mmol/L BUN 17 (9-20) mg/dL Creatinine 1.09 (0.66-1.25) mg/dL Estimated GFR > 60 (>60) mL/min BUN/Creatinine Ratio 15.6 (6-22) Glucose 121 H (80-110) mg/dL Calcium 8.4 (8.4-10.2) mg/dL Total Bilirubin 0.6 (0.2-1.3) mg/dL AST 27 (17-59) IU/L ALT 27 (<50) IU/L Alkaline Phosphatase 68 (38-126) U/L Total Protein 7.4 (6.3-8.2) g/dL Albumin 4.2 (3.5-5.0) g/dL Globulin 3.2 (1.7-4.1) g/dL Albumin/Globulin Ratio 1.3 (1.0-2.8) Lipase 55 (23-300) U/L Urine RBC 0-1/hpf (0-5/HPF) Urine WBC 0-1/hpf (0-5/HPF) Ur Squamous Epith Cells None seen (0-5/HPF) Urine Bacteria Occasional (0-1) (None) Ur Culture Indicated? Cult not indicated Vol Urine Centrifuged 10ml (spun) Point of care testing: Urine Dip Bedside Urine Glucose Negative Bedside Urine Bilirubin - Negative Bedside Urine Ketone - Negative Urine Specific [place] 1.010 Bedside Urine Occult Blood + Bedside Urine pH 6.0 Bedside Urine Protein - Negative Bedside Urine Urobilinogen - Negative Bedside Urine Nitrite - Negative Bedside Urine Leukocytes - Negative Esterase Discharge Plan Departure Patient Disposition: Home Clinical Impression: Acute left flank pain, Muscle strain Activity Restrictions/Additional Instructions: *You have been diagnosed with [flank pain, muscle strain ] *What to do: *Please continue to take your regular medications as directed. [X ] New medication prescriptions sent to your pharmacy: [ ] [ ] New medication written as a paper prescription [ ] No new medications given *Please follow up with your primary care provider in 2-3 days, call for an appointment. Let them know you were seen in the Emergency Department and that we ask that you be seen in follow up. We will electronically transmit a record of today's note if your PCP is in our system. We looked at your labs today and did a CT scan of your abdomen and pelvis. Your labs were looking okay, and your CT scan did show that you have a kidney stone however it is nonobstructing and I do not think that it explains the discomfort you have been having recently. You do have a small hiatal hernia also seen on the CT scan again I think this unlikely to cause all of your symptoms. It is possible the hiatal hernia may because some of your abdominal discomfort. We gave you antinausea medicine, fluids, pain medicine and some Protonix which is a proton pump inhibitor that can help with inflammation of the esophagus and stomach while you are in the emergency department. I think it is probable that you pulled muscles and may have some muscle spasming going on in your left flank, this could potentially be causing some of your abdominal upset but your abdominal upset could be from possibly a new duodenal ulcer that is developing as you have had this in the past, or acid buildup. I am prescribing 2 week course of a PPI for you to see if this helps with your abdominal symptoms, and I would encourage you to try Tylenol and you can take ibuprofen at home but do not overdo this. Should try heat over her left flank as well and gentle stretching. If you develop fevers chills, increasing pain that is not controlled with OTC medications or other symptoms of concern please make sure you seek re-evaluation. I would encourage you otherwise to follow up closely with your primary care provider, consider seeing General surgery and GI as you may warrant a repeat upper endoscopy. Do be thoughtful about your diet and try to eat neutral foods that will not increased acid production. *If you do not have a primary care provider please contact the [facility] Resource line at [phone]. They will ask some questions about your medical history and help get you set up with a doctor in the community. *Return to Emergency Department if you should have any new, worsening or concerning symptoms, such as [fever greater than 101 F, shaking chills, worsening pain, persistent vomiting or other bothersome symptoms] Prescriptions: New pantoprazole [Protonix] 20 mg tablet,delayed release (DR/EC) 20 mg PO DAILY 20 Days Qty: 20 0RF No Action cholecalciferol (vitamin D3) [Vitamin D3] 25 mcg (1,000 unit) capsule 1,000 unit PO DAILY triamcinolone acetonide 0.1 % cream 1 applic topical BID PRN (Reason: dermatitis) Qty: 454 1RF Rx Instructions: apply to affected areas on legs & arms twice daily as needed tamsulosin 0.4 mg capsule 0.4 mg PO ONCE PM Qty: 90 0RF Arnuity Ellipta 100 mcg/actuation blister with device 1 inh inhalation DAILY Qty: 30 1RF omeprazole 20 mg tablet,delayed release (DR/EC) 20 mg PO DAILY Qty: 90 3RF ketoconazole 2 % cream 1 applic topical albuterol sulfate 90 mcg/actuation HFA aerosol inhaler 2 puff inhalation Q4-6H PRN (Reason: shortness of breath or wheezing) Qty: 6.7 1RF Rx Instructions: Inhale 2 puffs using spacer every 4-6 hours as needed for cough, shortness of breath (DME) BreatheRite MDI Spacer Spacer See Rx Instructions .Route Qty: 1 0RF Rx Instructions: As directed levothyroxine 88 mcg tablet 88 mcg PO DAILY Qty: 90 3RF trazodone 100 mg tablet 100 mg PO BEDTIME Qty: 90 3RF atorvastatin [Lipitor] 20 mg tablet 20 mg PO HS Qty: 90 3RF Referrals: Ashwin Shipley, [Primary Care Provider] - Stand Alone Forms: Patient Portal/API ED Sign-out <Dhaval Eddy MD - Last Filed: 01/20/24 06:17> Sign Out Provider Sign Out Attestation: I was immediately available in the department for consultation. This documentation has been reviewed. Supervised by Dhaval Eddy MD
[2024-01-19] MEDS: HYDROMORPHONE 0.5 MG INJ IV ×2 (18:10→19:58)
[2024-01-19] MEDS: LACTATED RINGERS 500 ML IV (18:11)
[2024-01-19] MEDS: PANTOPRAZOLE 40 MG VIAL 20 MG IV (19:35)
[2024-01-19] MEDS: ONDANSETRON 4 MG/2 ML INJ IV (20:10)
== END 2024-01-19 20:18 | disposition home or self-care (01) ==
PROVIDERS: Emergency Medicine; Emergency Provider Student in an Organized Health Care Education/Training Program; PCP Family Medicine
DX: S39.011A Strain of muscle, fascia and tendon of abdomen, initial encounter (principal); R10.9 Unspecified abdominal pain; X58.XXXA Exposure to other specified factors, initial encounter
CPT/HCPCS: 36415; 74177; 80053; 81003; 81015; 83690; 85025; 96361; 96374; 96375; 96376; 99284; C9113; J1170; J2405; Q9967

== ENCOUNTER 2024-03-20 14:19 | Emergency (ER) | payer MEDICARE, OTHER, SELFPAY ==
[2024-03-20 14:24] VITALS: BP 137/64; PULSE 76; RESP 17; TEMP 36.2; O2SAT 96; BMI 28.8
--- NOTE | 2024-03-20 14:36 | DI.RAD.S_ITS ---
PROCEDURE: XR FINGER RT MIN 2V INDICATIONS: fall TECHNIQUE: AP hand, 3 views of the 5th finger(s) acquired. COMPARISON: None. FINDINGS: Bones: Volar plate fracture at the base of the 5th distal phalanx. Soft tissues: No suspicious soft tissue calcifications. IMPRESSION: Age indeterminate volar plate fracture at the base of the 5th distal phalanx. Dictated by: Juanito De La Cruz M.D. on 03/20/2024 at 16:14 Approved by: Juanito De La Cruz M.D. on 03/20/2024 at 16:15
--- NOTE | 2024-03-20 14:39 | ED.FALL ---
HPI - Fall <Audrey Fitch PA-C - Last Filed: 03/20/24 16:56> General Chief Complaint: Fall Stated Complaint: Fall of deck chair, hand injury, no blood thinners Time Seen by Provider: 03/20/24 14:39 Source: patient Mode of arrival: Family Vehicle History of Present Illness HPI Narrative: 73-year-old male presents today for a fall that occurred at around 2:00 p.m. this afternoon, he was attempting to sit in a folding chair when it fell backwards about 3-4 steps on his deck. He landed primarily with his right pinky right hand then elbow than his right knee. His chief complaint is right pinky pain he points to the distal segment, he thinks ?I broke it?. He also sustained some abrasions and had some bleeding. He has not taking any blood thinners or aspirin. He is right-handed dominant. His history is significant for previous right elbow ORIF but he has not complaining of any pain or any decreased movement. Again he is mainly here for x-rays primarily his right pinky finger. His last tetanus was in 2022. All other systems are reviewed and are negative. Related Data Home Medications Medication Instructions Recorded Confirmed cholecalciferol (vitamin D3) 25 1,000 unit PO DAILY 06/21/22 01/23/24 mcg (1,000 unit) capsule (Vitamin D3) ketoconazole 2 % topical cream 1 applic topical 12/28/23 01/23/24 Previous Rx's Medication Instructions Recorded omeprazole 20 mg tablet,delayed 20 mg PO DAILY #90 tabs 06/23/23 release triamcinolone acetonide 0.1 % 1 applic topical BID PRN 06/29/23 topical cream dermatitis #454 grams atorvastatin 20 mg tablet (Lipitor) 20 mg PO HS #90 tabs 10/10/23 levothyroxine 88 mcg tablet 88 mcg PO DAILY hypothyroidism #90 10/10/23 tabs trazodone 100 mg tablet 100 mg PO BEDTIME #90 tabs 10/10/23 albuterol sulfate 90 mcg/actuation 2 puff inhalation Q4-6H PRN 12/28/23 aerosol inhaler shortness of breath or wheezing #6.7 grams inhalational spacing device #1 ea 12/28/23 (BreatheRite MDI Spacer) Arnuity Ellipta 100 mcg/actuation 1 inh inhalation DAILY #30 ea 01/11/24 powder for inhalation (fluticasone furoate) cyclobenzaprine 10 mg tablet 5 - 10 mg (0.5 - 1 x 10 mg) PO TID 01/23/24 #30 tabs tamsulosin 0.4 mg capsule 0.4 mg PO ONCE PM #90 caps 02/12/24 Allergies Allergy/AdvReac Type Severity Reaction Status Date / Time bacitracin Allergy Unknown Verified 03/20/24 14:34 [From TRIPLE ANTIBIOTIC] Iodine and Iodide Containing Allergy Unknown Verified 03/20/24 14:34 Produc [IODINE AND IODIDE CONTAINING PRODUC] neomycin Allergy Unknown Verified 03/20/24 14:34 [From TRIPLE ANTIBIOTIC] polymyxin B Allergy Unknown Verified 03/20/24 14:34 [From TRIPLE ANTIBIOTIC] Patient History <Audrey Fitch PA-C - Last Filed: 03/20/24 16:56> Medical History Allergic dermatitis Osteoarthritis Medicare annual wellness visit, subsequent Encounter for well adult exam without abnormal findings BPH (benign prostatic hyperplasia) Lower urinary tract symptoms Calcium oxalate stones Erectile dysfunction Malignant melanoma Insomnia Hyperlipemia Hypertension Hx of staphylococcal infection (2010) Fractures ADHD (attention deficit hyperactivity disorder) (2009) Allergic rhinitis Rosacea (2003) Sleep apnea (2001) Chickenpox (1955) Measles (1957) Mumps (1956) Hemorrhoids (1994) Kidney stones (1997) Hearing loss Lymphoma Malaise and fatigue Fractured elbow (~1979) Femur fracture Port-A-Cath in place Impaired vision Chronic venous insufficiency (05/29/17) Primary insomnia (06/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 Grandfather Cancer Sister Cancer Social History marital status: household members: spouse and friend(s) Smoking Status: Former smoker alcohol intake: current Type(s) of exercise: walking frequency: daily Smoking Status: Former smoker tobacco type: cigarettes alcohol intake frequency: holidays/special occasions only Substance Use Type: marijuana Exam <Audrey Fitch PA-C - Last Filed: 03/20/24 16:56> Initial Vital Signs Initial Vital Signs: Vital Signs Temperature 97.2 F L 03/20/24 14:24 Pulse Rate 76 03/20/24 14:24 Respiratory Rate 17 03/20/24 14:24 Blood Pressure 137/64 03/20/24 14:24 Pulse Oximetry 96 03/20/24 14:24 Oxygen Delivery Method Room Air 03/20/24 14:24 Vital signs reviewed and are normal. <Joann Perkins MD - Last Filed: 03/20/24 18:20> Initial Vital Signs Initial Vital Signs: Vital Signs Temperature 97.2 F L 03/20/24 14:24 Pulse Rate 76 03/20/24 14:24 Respiratory Rate 17 03/20/24 14:24 Blood Pressure 137/64 03/20/24 14:24 Pulse Oximetry 96 03/20/24 14:24 Oxygen Delivery Method Room Air 03/20/24 14:24 Procedures <Audrey Fitch PA-C - Last Filed: 03/20/24 16:56> Orthopedic Splinting/Casting Injury #1: Side: right Upper Extremity Injury Location: finger Post splinting neuro exam: intact Placed by: Provider Additional Comments: Aluminum stack splint applied to his pinky finger on the right side. It was cut to size, Coban tape used for padding to minimize any sharp edges and it is secured with Coban. He feels comfortable following splinting. Capillary refill remains intact. Course <Audrey Fitch PA-C - Last Filed: 03/20/24 16:56> Orders Ordered: ED Orders 03/20/24 14:36 XR finger RT min 2V Stat 03/20/24 14:44 XR elbow RT min 3V Stat Vital Signs Vital signs: Vital Signs - 8 hr 03/20/24 14:24 03/20/24 17:02 Temperature 97.2 F L 98.6 F Pulse Rate 76 70 Respiratory Rate 17 20 Blood Pressure 137/64 130/62 Pulse Oximetry 96 99 Oxygen Delivery Method Room Air Room Air <Joann Perkins MD - Last Filed: 03/20/24 18:20> Orders Ordered: ED Orders 03/20/24 14:36 XR finger RT min 2V Stat 03/20/24 14:44 XR elbow RT min 3V Stat Vital Signs Vital signs: Vital Signs - 8 hr 03/20/24 14:24 03/20/24 17:02 Temperature 97.2 F L 98.6 F Pulse Rate 76 70 Respiratory Rate 17 20 Blood Pressure 137/64 130/62 Pulse Oximetry 96 99 Oxygen Delivery Method Room Air Room Air MDM - Fall <Audrey Fitch PA-C - Last Filed: 03/20/24 16:56> Imaging Data Extremity x-ray #1: My Impression: distal segment base fracture of pinky finger (right) Radiologist's Impression: PROCEDURE: XR FINGER RT MIN 2V INDICATIONS: fall TECHNIQUE: AP hand, 3 views of the 5th finger(s) acquired. COMPARISON: None. FINDINGS: Bones: Volar plate fracture at the base of the 5th distal phalanx. Soft tissues: No suspicious soft tissue calcifications. IMPRESSION: Age indeterminate volar plate fracture at the base of the 5th distal phalanx. Dictated by: Juanito De La Cruz M.D. on 03/20/2024 at 16:14 Approved by: Juanito De La Cruz M.D. on 03/20/2024 at 16:15 Extremity x-ray #2: My Impression: No fracture seen. Radiologist's Impression: PROCEDURE: XR ELBOW RT MIN 3V INDICATIONS: FOOSH, prior elbow surgery with hardware, no pain TECHNIQUE: 3 views of the elbow were acquired. COMPARISON: None. FINDINGS: Bones: No fractures or dislocations. No suspicious bony lesions. Surgical fixation of the proximal ulna. Soft tissues: No elbow joint effusion. No suspicious soft tissue calcifications. IMPRESSION: Surgical fixation of the proximal ulna. No displaced fracture or significant joint effusion. Dictated by: Juanito De La Cruz M.D. on 03/20/2024 at 16:14 Approved by: Juanito De La Cruz M.D. on 03/20/2024 at 16:14 Discharge Plan Departure Patient Disposition: Home Clinical Impression: Closed fracture of finger, phalanx, distal Qualifiers: Encounter type: initial encounter Finger: little finger Fracture alignment: nondisplaced Laterality: right Qualified Code(s): S62.666A - Nondisplaced fracture of distal phalanx of right little finger, initial encounter for closed fracture Instructions: DI for Finger Fracture Activity Restrictions/Additional Instructions: Please wear the splint at all times, please avoid re-injury. Please follow up with your primary care provider to make sure this is healing properly. You may want a referral to Orthopedics although this type of fracture usually does quite well and it has a matter of managing your pain which can be done with other Tylenol or nonsteroidal anti-inflammatory of choice. He may also ice directly over the splint. Jaden taping is also helpful in terms of preventing injury or accidental re-injury. Please seek medical attention if anything worsens, you have increased swelling, pain redness or any other worrisome symptoms. Prescriptions: No Action cholecalciferol (vitamin D3) [Vitamin D3] 25 mcg (1,000 unit) capsule 1,000 unit PO DAILY triamcinolone acetonide 0.1 % cream 1 applic topical BID PRN (Reason: dermatitis) Qty: 454 1RF Rx Instructions: apply to affected areas on legs & arms twice daily as needed Arnuity Ellipta 100 mcg/actuation blister with device 1 inh inhalation DAILY Qty: 30 1RF tamsulosin 0.4 mg capsule 0.4 mg PO ONCE PM Qty: 90 3RF omeprazole 20 mg tablet,delayed release (DR/EC) 20 mg PO DAILY Qty: 90 3RF ketoconazole 2 % cream 1 applic topical albuterol sulfate 90 mcg/actuation HFA aerosol inhaler 2 puff inhalation Q4-6H PRN (Reason: shortness of breath or wheezing) Qty: 6.7 1RF Rx Instructions: Inhale 2 puffs using spacer every 4-6 hours as needed for cough, shortness of breath (DME) BreatheRite MDI Spacer Spacer See Rx Instructions .Route Qty: 1 0RF Rx Instructions: As directed cyclobenzaprine 10 mg tablet 5 - 10 mg PO TID Qty: 30 0RF levothyroxine 88 mcg tablet 88 mcg PO DAILY Qty: 90 3RF trazodone 100 mg tablet 100 mg PO BEDTIME Qty: 90 3RF atorvastatin [Lipitor] 20 mg tablet 20 mg PO HS Qty: 90 3RF Referrals: Ashwin Shipley, [Primary Care Provider] - Stand Alone Forms: Patient Portal/API ED Sign-out <Joann Perkins MD - Last Filed: 03/20/24 18:20> Cosign ED Attending Cosignature Attestation: I was immediately available in the department for consultation throughout this patient's visit. Joann Perkins MD
--- NOTE | 2024-03-20 14:44 | DI.RAD.S_ITS ---
PROCEDURE: XR ELBOW RT MIN 3V INDICATIONS: FOOSH, prior elbow surgery with hardware, no pain TECHNIQUE: 3 views of the elbow were acquired. COMPARISON: None. FINDINGS: Bones: No fractures or dislocations. No suspicious bony lesions. Surgical fixation of the proximal ulna. Soft tissues: No elbow joint effusion. No suspicious soft tissue calcifications. IMPRESSION: Surgical fixation of the proximal ulna. No displaced fracture or significant joint effusion. Dictated by: Juanito De La Cruz M.D. on 03/20/2024 at 16:14 Approved by: Juanito De La Cruz M.D. on 03/20/2024 at 16:14
[2024-03-20 17:02] VITALS: BP 130/62; PULSE 70; RESP 20; TEMP 37; O2SAT 99
== END 2024-03-20 17:03 | disposition home or self-care (01) ==
PROVIDERS: Emergency Provider Physician Assistant Medical; PCP Family Medicine
DX: S62.666A Nondisplaced fracture of distal phalanx of right little finger, initial encounter for closed fracture (principal); M25.521 Pain in right elbow; W10.9XXA Fall (on) (from) unspecified stairs and steps, initial encounter
CPT/HCPCS: 73080; 73140; 99282; 99283

== ENCOUNTER → 2024-05-16 11:00 | Outpatient (CLI) | payer MEDICARE, OTHER, SELFPAY ==
--- NOTE | 2024-05-16 11:02 | DI.RAD.S_ITS ---
PROCEDURE: XR LUMBAR SPINE MIN 4V INDICATIONS: Low back pain w/sciatica x 2 weeks TECHNIQUE: 5 views of the lumbar spine were acquired, including bilateral oblique views. COMPARISON: None. FINDINGS: Bones: 5 nonrib-bearing vertebrae are present. There is normal bony alignment. No vertebral body compression fractures. No suspicious bony lesions. Mild degree of degenerative disc disease with associated endplate osteophytes involving L2-3 and L4-5. Multilevel facet arthropathy of L4-5 and L5-S1. Soft tissues: Overlying bowel gas pattern is normal. No suspicious soft tissue calcifications. Oblique images: No pars defects. IMPRESSION: Degenerative disc disease of the lumbar spine and lower lumbar facet arthropathy without acute osseous abnormality. Dictated by: Deon Logan M.D. on 05/17/2024 at 9:34 Approved by: Deon Logan M.D. on 05/17/2024 at 9:36
--- NOTE | 2024-05-16 11:21 | DI.RAD.S_ITS ---
PROCEDURE: XR KUB INDICATIONS: Follow-up kidney stones TECHNIQUE: One view of the abdomen acquired. COMPARISON: [facility], CR, XR KUB, 02/25/2023, 12:27. FINDINGS: Surgical changes and devices: None. Bowel: Bowel gas pattern is normal. Soft tissues: No suspicious abdominal calcifications. Visualized solid organ contours appear normal in size. Bones: No suspicious bony lesions. IMPRESSION: No abnormal abdominal or pelvic calcifications. Dictated by: Deon Logan M.D. on 05/17/2024 at 9:31 Approved by: Deon Logan M.D. on 05/17/2024 at 9:34
== END ==
PROVIDERS: PCP Family Medicine; Referring Provider Physician Assistant; Visit Provider Physician Assistant
DX: M47.26 Other spondylosis with radiculopathy, lumbar region (principal); M47.27 Other spondylosis with radiculopathy, lumbosacral region; M51.16 Intervertebral disc disorders with radiculopathy, lumbar region; N20.0 Calculus of kidney
CPT/HCPCS: 72110; 74018

== ENCOUNTER → 2024-10-03 10:17 | Outpatient (CLI) | payer MEDICARE, OTHER, SELFPAY ==
[2024-10-03 10:46] LABS: Add Manual Diff / Slide Review NO; Basophils Absolute Auto 100 /uL (0-100); Basophils Percent Auto 0.8 % (0-2); Eosinophils Absolute Auto 100 /uL (0-450); Eosinophils Percent Auto 1.2 % (2-4); Hematocrit 44.2 % (41-53); Hemoglobin 14.8 g/dL (13.5-17.5); Lymphocytes Absolute Auto 1300 /uL (1100-4500); Lymphocytes Percent Auto 21.3 % (25-40); Mean Corpuscular HGB Conc 33.5 % (30-36); Mean Corpuscular Hemoglobin 30.1 PG (26-34); Mean Corpuscular Volume 89.8 fL (80-100); Monocytes Absolute Auto 700 /uL (0-900); Monocytes Percent Auto 11.3 % (3-14); Neutrophils Absolute Auto 3900 /uL (1500-7000); Neutrophils Percent Auto 65.4 % (50-75); Platelet Count 216 X10^3/uL (150-400); Red Blood Cell Count 4.93 X10^6/uL (4.5-5.9); Red Cell Distribution Width 14.5 % (11.6-14.8)
[2024-10-03 11:31] LABS: Free T4, Direct Thyroxine 1.02 ng/dL (0.78-2.19)
[2024-10-03 11:44] LABS: Prostate Specific Antigen Scrn 2.32 ng/mL (0.1-4.0)
[2024-10-03 11:45] LABS: Thyroid Stimulating Hormone 0.983 uIU/mL (0.47-4.68)
[2024-10-03 11:51] LABS: Hemoglobin A1C% w Est Avg Glu 5.3 % (4.0-6.0)
== END ==
PROVIDERS: PCP Family Medicine; Referring Provider Family Medicine; Visit Provider Family Medicine
DX: E03.9 Hypothyroidism, unspecified (principal); R73.03 Prediabetes; Z12.5 Encounter for screening for malignant neoplasm of prostate; N40.0 Benign prostatic hyperplasia without lower urinary tract symptoms; E78.00 Pure hypercholesterolemia, unspecified
CPT/HCPCS: 36415; 83036; 84439; 84443; 85025; G0103

== ENCOUNTER → 2024-11-22 10:48 | Outpatient (CLI) | payer MEDICARE, OTHER, SELFPAY ==
--- NOTE | 2024-11-22 10:50 | DI.RAD.S_ITS ---
PROCEDURE: XR HAND LT MIN 3V INDICATIONS: L hand pain, previous injury TECHNIQUE: 3 views of the hand(s) acquired. COMPARISON: None. FINDINGS: Bones: No fractures or dislocations. Carpal bones are normally aligned. No suspicious bony lesions. Soft tissues: Punctate radiodense foreign bodies are noted within the palmar soft tissues of the 1st digit anteriorly adjacent to the middle phalanx. No suspicious soft tissue calcifications. IMPRESSION: No acute bony abnormality. Punctate radiodense foreign bodies within the palm soft tissues of the 1st digit. Dictated by: Benja Quiñonez M.D. on 11/24/2024 at 0:14 Approved by: Benja Quiñonez M.D. on 11/24/2024 at 0:16
== END ==
PROVIDERS: PCP Family Medicine; Referring Provider Family Medicine; Visit Provider Family Medicine
DX: M79.642 Pain in left hand (principal); M79.5 Residual foreign body in soft tissue
CPT/HCPCS: 73130

== ENCOUNTER 2025-05-29 13:47 | Emergency (ER) | payer MEDICARE, OTHER, SELFPAY ==
[2025-05-29 13:59] VITALS: BP 160/71; PULSE 87; RESP 16; TEMP 37.1; O2SAT 96; BMI 31.4
--- NOTE | 2025-05-29 14:04 | DI.RAD.S_ITS ---
PROCEDURE: XR CHEST 2V
--- NOTE | 2025-05-29 14:12 | ED_ITS ---
HPI - URI/Sore Throat
--- NOTE | 2025-05-29 14:12 | ED.URI ---
HPI - URI/Sore Throat General Chief Complaint: Upper Respiratory Symptoms Stated Complaint: Coughing up yellow stuff 2 days Time Seen by Provider: 05/29/25 14:04 History of Present Illness HPI Narrative: 74-year-old gentleman history of dyslipidemia presents with cough and unrelieved with nyquil for the past 2 3 days but denies any fever, chills, body aches, sore throat, chest pain, shortness breath, dyspnea on exertion. Other than what is stated 14 point review of systems negative. Related Data Home Medications ?Medication ?Instructions ?Recorded ?Confirmed cholecalciferol (vitamin D3) 25 1,000 unit PO DAILY 06/21/22 11/22/24 mcg (1,000 unit) capsule (Vitamin D3) ketoconazole 2 % topical cream 1 applic topical 12/28/23 11/22/24 Previous Rx's ?Medication ?Instructions ?Recorded triamcinolone acetonide 0.1 % 1 applic topical BID PRN 06/29/23 topical cream dermatitis #454 grams cyclobenzaprine 10 mg tablet 5 - 10 mg (0.5 - 1 x 10 mg) PO TID 01/23/24 #30 tabs atorvastatin 20 mg tablet (Lipitor) 20 mg PO HS #90 tabs 10/03/24 gabapentin 100 mg capsule See Rx Instructions PO BEDTIME #30 10/03/24 caps levothyroxine 88 mcg tablet 88 mcg PO DAILY hypothyroidism #90 10/03/24 tabs omeprazole 20 mg capsule,delayed 20 mg PO DAILY #90 caps 10/03/24 release trazodone 100 mg tablet 100 mg PO BEDTIME #90 tabs 10/03/24 tamsulosin 0.4 mg capsule 0.4 mg PO BID #180 caps 04/02/25 amoxicillin 875 mg-potassium 1 tab PO Q12H #14 tabs 05/29/25 clavulanate 125 mg tablet azithromycin 250 mg tablet 250 mg PO DAILY 4 days #4 tabs 05/29/25 Allergies Allergy/AdvReac Type Severity Reaction Status Date / Time bacitracin (From TRIPLE Allergy Unknown Verified 11/22/24 10:17 ANTIBIOTIC) Iodine and Iodide Containing Allergy Unknown Verified 11/22/24 10:17 Produc (IODINE AND IODIDE CONTAINING PRODUC) neomycin (From TRIPLE Allergy Unknown Verified 11/22/24 10:17 ANTIBIOTIC) polymyxin B (From TRIPLE Allergy Unknown Verified 11/22/24 10:17 ANTIBIOTIC) Patient History Medical History Left hand pain Allergic dermatitis Osteoarthritis Medicare annual wellness visit, subsequent Encounter for well adult exam without abnormal findings BPH (benign prostatic hyperplasia) Lower urinary tract symptoms Calcium oxalate stones Erectile dysfunction Malignant melanoma Insomnia Hyperlipemia Hypertension Hx of staphylococcal infection (2010) Fractures ADHD (attention deficit hyperactivity disorder) (2009) Allergic rhinitis Rosacea (2003) Sleep apnea (2001) Chickenpox (1955) Measles (1957) Mumps (1956) Hemorrhoids (1994) Kidney stones (1997) Hearing loss Lymphoma Malaise and fatigue Fractured elbow (~1979) Femur fracture Port-A-Cath in place Impaired vision Chronic venous insufficiency (05/29/17) Primary insomnia (06/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 Grandfather Cancer Sister Cancer Social History marital status: household members: spouse and friend(s) alcohol intake: current Type(s) of exercise: walking frequency: daily tobacco type: cigarettes alcohol intake frequency: holidays/special occasions only Exam Narrative Exam Narrative: GENERAL: [74] year old patient appears stated age. Well-developed patient, in mild distress. HEAD: Atraumatic. Normocephalic. EYES: Pupils equal round and reactive. Extraocular motions intact. No scleral icterus. No injection or drainage. ENT: Nose without bleeding, purulent drainage. Throat without erythema, tonsillar hypertrophy or exudate. Airway patent. NECK: Trachea midline. Non tender CARDIOVASCULAR: Regular rate and rhythm without murmurs, gallops, or rubs. RESPIRATORY: Bilateral rhonchi course GASTROINTESTINAL: Abdomen soft, non-tender, nondistended. EXTREMITIES: No edema or joint tenderness. BACK: Nontender without deformity or crepitance. No flank tenderness. NEURO: AOx3. SKIN: No rash or erythema of visible areas Initial Vital Signs Initial Vital Signs: Vital Signs Temperature 98.8 F 05/29/25 13:59 Pulse Rate 87 05/29/25 13:59 Respiratory Rate 16 05/29/25 13:59 Blood Pressure 160/71 H 05/29/25 13:59 Pulse Oximetry 96 05/29/25 13:59 Oxygen Delivery Method Room Air 05/29/25 13:59 Course Orders Ordered: ED Orders 05/29/25 14:04 XR chest 2V Stat 05/29/25 14:06 Covid-19 + FLU A/B + RSV - PCR Stat Discontinued Medications Albuterol/Ipratropium (Albuterol/Ipratropium 3 Ml Ampul) 3 ml INH NOW ONE Stop: 05/29/25 15:08 Vital Signs Vital signs: Vital Signs - 8 hr 05/29/25 13:59 05/29/25 15:27 Temperature 98.8 F Pulse Rate 87 78 Respiratory Rate 16 16 Blood Pressure 160/71 H Pulse Oximetry 96 99 Oxygen Delivery Method Room Air Room Air MDM - URI/Sore Throat Lab Data Labs: Lab Results 05/29/25 Range/Units 14:06 SARS-CoV-2 (PCR) Negative (Negative) Influenza A (RT-PCR) Flu a negative (NEGATIVE) Influenza B (RT-PCR) Flu b negative (NEGATIVE) RSV (PCR) Negative (Negative) MDM Narrative Medical decision making narrative: All lab work vital signs nurse triage note medication list previous ER visits in all imaging studies reviewed. Patient given Augmentin and Zithromax here along with breathing treatment and will be sent home on same medicines. Differential diagnosis include COVID flu RSV for which COVID flu RSV is negative. Discharge Plan Departure Patient Disposition: Home Clinical Impression: Pneumonia Instructions: DI for Pneumonia -- Adult Activity Restrictions/Additional Instructions: Return with new or worsening symptoms. Take medications as directed. Follow up PCP in 1-2 weeks if no improvement in symptoms. Prescriptions: New amoxicillin-pot clavulanate 875-125 mg tablet 1 tab PO Q12H Qty: 14 0RF azithromycin 250 mg tablet 250 mg PO DAILY 4 Days Qty: 4 0RF No Action cholecalciferol (vitamin D3) [Vitamin D3] 25 mcg (1,000 unit) capsule 1,000 unit PO DAILY triamcinolone acetonide 0.1 % cream 1 applic topical BID PRN (Reason: dermatitis) Qty: 454 1RF Rx Instructions: apply to affected areas on legs & arms twice daily as needed tamsulosin 0.4 mg capsule 0.4 mg PO BID Qty: 180 2RF ketoconazole 2 % cream 1 applic topical cyclobenzaprine 10 mg tablet 5 - 10 mg PO TID Qty: 30 0RF atorvastatin [Lipitor] 20 mg tablet 20 mg PO HS Qty: 90 3RF gabapentin 100 mg capsule See Rx Instructions PO BEDTIME Qty: 30 0RF Rx Instructions: Take 100mg at bedtime, can add one capsule every 3rd night if needed up to 3 capsules at bedtime. levothyroxine 88 mcg tablet 88 mcg PO DAILY Qty: 90 3RF omeprazole 20 mg capsule,delayed release(DR/EC) 20 mg PO DAILY Qty: 90 3RF trazodone 100 mg tablet 100 mg PO BEDTIME Qty: 90 3RF Referrals: Ashwin Shipley, [Primary Care Provider, Family Practice] Stand Alone Forms: Patient Portal/API
[2025-05-29 14:47] LABS: Influenza A - CEPHEID Flu A NEGATIVE (NEGATIVE); Influenza B - CEPHEID Flu B NEGATIVE (NEGATIVE)
[2025-05-29 14:50] LABS: COVID-19 CEPHEID 4-PLEX PCR Negative (Negative)
[2025-05-29 15:27] VITALS: PULSE 78; RESP 16; O2SAT 99
[2025-05-29] MEDS: ALBUTEROL/IPRATROPIUM 3 ML AMPUL INH (15:40)
[2025-05-29] MEDS: AZITHROMYCIN 250 MG TABLET 500 MG PO (15:48)
[2025-05-29] MEDS: AMOXICILLIN/CLAV 875/125 MG 1 TAB PO (15:48)
[2025-05-29 15:49] VITALS: BP 175/74; PULSE 85; RESP 20; TEMP 37.1; O2SAT 94
== END 2025-05-29 15:56 | disposition home or self-care (01) ==
PROVIDERS: Emergency Provider Family Medicine; PCP Family Medicine
DX: J18.9 Pneumonia, unspecified organism (principal)
CPT/HCPCS: 71046; 87637; 94640; 99283